=== PATIENT | female | born 1960 | race Caucasian/White ===

== ENCOUNTER 2018-04-11 10:25 | Emergency (ER) | payer BC ==
[2018-04-11] MEDS ORDERED: IBUPROFEN 400 MG TAB ONE (10:52)
--- NOTE | 2018-04-11 11:29 | EDPHYS ---
Physician Documentation [facility] Name: Luz Stacy Age: 57 yrs Sex: Female : 1960 Arrival Date: 04/11/2018 Time: 10:28 Bed 13 Private MD: MELIDA GARIBAY ED Physician Bhupinder Ortez HPI: 04/11 10:42 This 57 yrs old Female presents to ER via Ambulatory with complaints of Fall cp Injury - ANKLE. 10:42 The patient presents with an injury, pain, that is acute. The complaints affect the cp right ankle. 10:42 Context: resulted from twisting of the extremity, walking down hill, the patient can cp fully bear weight, the patient is able to ambulate, with moderate difficulty. Onset: The symptoms/episode began/occurred today. Associated signs and symptoms: Pertinent positives: swelling, Pertinent negatives calf tenderness, numbness, tingling, weakness. Treatment prior to arrival includes: no previous treatment. Severity of symptoms: in the emergency department the symptoms are unchanged. Historical: - Allergies: 10:37 No Known Allergies; lk1 - Home Meds: 10:35 Hart Oral [Active]; omeprazole Oral [Active]; Methocarbamol Oral [Active]; rb1 - PMHx: 10:35 Back pain; digestive issues; hormonal issues; rb1 - PSHx: 10:37 Cholecystectomy; ; back surgery; lk1 - Immunization history:: Adult Immunizations up to date. - Social history:: Smoking status: Patient uses tobacco products, smokes one-half pack cigarettes per day. - Ebola Screening: : No symptoms or risks identified at this time. ROS: 10:45 Constitutional: Negative for body aches, chills, fever, poor PO intake. cp 10:45 Eyes: Negative for injury, pain, redness, and discharge. cp 10:45 Cardiovascular: Negative for chest pain, edema, palpitations. 10:45 Respiratory: Negative for cough, shortness of breath, wheezing. 10:45 Abdomen/GI: Negative for abdominal pain, nausea, vomiting, and diarrhea. 10:45 MS/extremity: Positive for decreased range of motion, pain, swelling, tenderness, of the lateral aspect of right foot and right ankle. 10:45 Neuro: Negative for altered mental status, headache, weakness. 10:45 All other systems are negative. Exam: 10:50 Constitutional: The patient appears in no acute distress, alert, awake, non-toxic, well cp developed, well nourished. 10:50 Head/Face: Normocephalic, atraumatic. cp 10:50 Eyes: Periorbital structures: appear normal, Conjunctiva: normal, no exudate, no injection, Lids and lashes: appear normal, bilaterally. 10:50 ENT: External ear(s): are unremarkable, Nose: is normal, Mouth: is normal, Posterior pharynx: is normal, airway is patent. 10:50 Neck: ROM/movement: is normal, is supple, without pain, no range of motions limitations, no nuchal rigidity. 10:50 Chest/axilla: Inspection: normal. 10:50 Cardiovascular: Rate: normal. 10:50 Respiratory: the patient does not display signs of respiratory distress, Respirations: normal. 10:50 Abdomen/GI: Exam negative for discomfort, distension, guarding, Inspection: abdomen appears normal. 10:50 Back: pain, is absent, ROM is normal. 10:50 Musculoskeletal/extremity: Extremities: grossly normal except: noted in the lateral aspect right ankle and right foot: pain, swelling, tenderness, There is no evidence of decreased ROM, Pulses: noted to be 2+ in the right dorsalis pedis artery, Sensation intact. 10:50 Skin: cellulitis, is not appreciated, no rash present. Vital Signs: 10:38 BP 128 / 78; Pulse 78; Resp 15; Temp 97.5(TE); Pulse Ox 100% on R/A; Weight 74.84 kg lk1 (R); Height 5 ft. 1 in. (154.94 cm) (R); Pain 7/10; 11:40 BP 137 / 79; Pulse 74; Resp 16; Pulse Ox 99% on R/A; rb1 10:38 Body Mass Index 31.18 (74.84 kg, 154.94 cm) lk1 MDM: 10:35 Patient medically screened. cp 10:45 Differential diagnosis: dislocation, closed fracture, sprain, tendon rupture. cp 11:26 Data reviewed: vital signs, nurses notes, radiologic studies, plain films. Test cp interpretation: by ED physician or midlevel provider: plain radiologic studies. 11:26 Counseling: I had a detailed discussion with the patient and/or guardian regarding: the cp historical points, exam findings, and any diagnostic results supporting the discharge/admit diagnosis, radiology results, the need for outpatient follow up, a family practitioner, to return to the emergency department if symptoms worsen or persist or if there are any questions or concerns that arise at home. 04/11 10:39 Order name: Ankle Right 3 View XRAY cp 04/11 10:39 Order name: Foot Right 3 View XRAY cp 04/11 11:18 Order name: Galen wrap-joint; Complete Time: 12:12 cp 04/11 11:18 Order name: Crutches; Complete Time: 12:12 cp 04/11 11:18 Order name: Ankle Splint: Aircast; Complete Time: 12:12 cp Administered Medications: 10:56 Drug: Ibuprofen 800 mg Route: PO; rb1 11:30 Follow up: Response: No adverse reaction; Pain is decreased rb1 Disposition: 18:31 Co-signature as Attending Physician, Bhupinder Ortez MD. Disposition: 04/11/18 11:28 Discharged to Home. Impression: Sprain of ankle - Right, Other sprain of right foot. - Condition is Stable. - Discharge Instructions: Elastic Bandage and RICE, Ankle Sprain, Foot Sprain. - Prescriptions for Naprosyn 500 mg Oral Tablet - take 1 tablet by ORAL route 2 times per day take with food; 20 tablet. - Medication Reconciliation Form, Thank You Letter, Antibiotic Education, Prescription Opioid Use form. - Follow up: Private Physician; When: 1 week; Reason: pain and swelling continues. - Problem is new. - Symptoms have improved. Signatures: Dispatcher [employer] EDMS Donato Day PA PA cp Preeti Harvey RN RN rb1 Carolann Maki RN RN lk1 Bhupinder Ortez MD MD Eamon Waite jp3 Corrections: (The following items were deleted from the chart) 10:48 10:37 PMHx: None; lk1 rb1 11:29 11:28 04/11/2018 11:28 Discharged to Home. Impression: Sprain of ankle - Right; Pain in cp right foot. Condition is Stable. Forms are Medication Reconciliation Form, Thank You Letter, Antibiotic Education, Prescription Opioid Use. Follow up: Private Physician; When: 1 week; Reason: pain and swelling continues. Problem is new. Symptoms have improved. cp 11:43 11:29 04/11/2018 11:28 Discharged to Home. Impression: Sprain of ankle - Right; Other jp3 sprain of right foot. Condition is Stable. Discharge Instructions: Elastic Bandage and RICE, Ankle Sprain, Foot Sprain. Prescriptions for Naprosyn 500 mg Oral Tablet - take 1 tablet by ORAL route 2 times per day take with food; 20 tablet. and Forms are Medication Reconciliation Form, Thank You Letter, Antibiotic Education, Prescription Opioid Use. Follow up: Private Physician; When: 1 week; Reason: pain and swelling continues. Problem is new. Symptoms have improved. cp
--- NOTE | 2018-04-11 11:29 | ER ---
Nurse's Notes [facility] Name: Luz Stacy Age: 57 yrs Sex: Female : 1960 Arrival Date: 04/11/2018 Time: 10:28 Bed 13 Private MD: MELIDA GARIBAY Diagnosis: Sprain of ankle-Right;Other sprain of right foot Presentation: 04/11 10:36 Presenting complaint: Patient states: I slipped walking down a hill and twisted my lk1 right ankle. Transition of care: patient was not received from another setting of care. Onset of symptoms was April 11, 2018 at 09:30. Risk Assessment: Do you want to hurt yourself or someone else? Patient reports no desire to harm self or others. Initial Sepsis Screen: Does the patient meet any 2 criteria? No. Patient's initial sepsis screen is negative. Does the patient have a suspected source of infection? No. Patient's initial sepsis screen is negative. Care prior to arrival: None. 10:36 Method Of Arrival: Ambulatory lk1 10:36 Acuity: LON 4 lk1 Historical: - Allergies: 10:37 No Known Allergies; lk1 - Home Meds: 10:35 Perry Oral [Active]; omeprazole Oral [Active]; Methocarbamol Oral [Active]; rb1 - PMHx: 10:35 Back pain; digestive issues; hormonal issues; rb1 - PSHx: 10:37 Cholecystectomy; ; back surgery; lk1 - Immunization history:: Adult Immunizations up to date. - Social history:: Smoking status: Patient uses tobacco products, smokes one-half pack cigarettes per day. - Ebola Screening: : No symptoms or risks identified at this time. Screenin:35 Abuse screen: Denies threats or abuse. Nutritional screening: No deficits noted. rb1 Tuberculosis screening: No symptoms or risk factors identified. Fall Risk None identified. Assessment: 10:35 General: Appears uncomfortable, Behavior is calm, cooperative. Pain: Complains of pain rb1 in right ankle Pain currently is 8 out of 10 on a pain scale. Pain began 2-3 days ago. Neuro: Level of Consciousness is awake, alert, obeys commands, Oriented to person, place, time, situation. Cardiovascular: Capillary refill < 3 seconds is brisk in bilateral toes. Respiratory: Airway is patent Respiratory effort is even, unlabored, Respiratory pattern is regular, symmetrical. GI: No signs and/or symptoms were reported involving the gastrointestinal system. : No signs and/or symptoms were reported regarding the genitourinary system. Derm: Bruising that is on lateral aspect of right foot purple. Musculoskeletal: Range of motion: intact in all extremities. 10:58 Reassessment: Patient appears in no apparent distress at this time. No changes from rb1 previously documented assessment. at bedside. 11:40 Reassessment: Patient appears in no apparent distress at this time. Patient and/or rb1 family updated on plan of care and expected duration. Pain level reassessed. Patient is alert, oriented x 3, equal unlabored respirations, skin warm/dry/pink. Vital Signs: 10:38 BP 128 / 78; Pulse 78; Resp 15; Temp 97.5(TE); Pulse Ox 100% on R/A; Weight 74.84 kg lk1 (R); Height 5 ft. 1 in. (154.94 cm) (R); Pain 7/10; 11:40 BP 137 / 79; Pulse 74; Resp 16; Pulse Ox 99% on R/A; rb1 10:38 Body Mass Index 31.18 (74.84 kg, 154.94 cm) lk1 ED Course: 10:28 Patient arrived in ED. sb2 10:29 MELIDA GARIBAY is Private Physician. sb2 10:34 Donato Day PA is PHCP. cp 10:35 Bhupinder Ortez MD is Attending Physician. cp 10:35 Patient has correct armband on for positive identification. Bed in low position. Call rb1 light in reach. Side rails up X 1. Pulse ox on. NIBP on. 10:37 Triage completed. lk1 10:38 Preeti Harvey, LENNIE is Primary Nurse. rb1 10:38 Arm band placed on right wrist. lk1 10:55 X-ray completed. Portable x-ray completed in exam room. Patient tolerated procedure la2 well. 11:43 No provider procedures requiring assistance completed. Patient did not have IV access rb1 during this emergency room visit. Administered Medications: 10:56 Drug: Ibuprofen 800 mg Route: PO; rb1 11:30 Follow up: Response: No adverse reaction; Pain is decreased rb1 Outcome: 11:28 Discharge ordered by . cp 11:43 Patient left the ED. jp3 11:43 Discharged to home via wheelchair, with crutches, with family. rb1 11:43 Condition: stable 11:43 Discharge instructions given to patient, Instructed on discharge instructions, follow up and referral plans. medication usage, Demonstrated understanding of instructions, follow-up care, medications, Prescriptions given X 1. Signatures: Dispatcher [employer] EDMS Donato Day PA PA cp Barber, Rebecca RN RN rb1 Carolann Maki RN RN lk1 Ellen Paulino la2 Felicia Calabrese2 Eamon Waite jp3 Corrections: (The following items were deleted from the chart) 10:48 10:37 PMHx: None; lk1 rb1 12:00 11:58 In radiology for Ankle Right 3 View+RAD.[email or web address].[email or web address]. EDMS la2 12:00 11:58 In radiology for Foot Right 3 View+RAD.[email or web address].[email or web address]. EDMS la2
--- NOTE | 2018-04-12 09:33 | RAD REPORT ---
EXAM DESCRIPTION: RAD - Ankle Right 3 View - 04/11/2018 11:58 am CLINICAL HISTORY: PAIN Twisting injury to right foot and ankle. COMPARISON: None FINDINGS: Right ankle and right foot, multiple projections are submitted. Soft tissue swelling is seen about the ankle. No acute fracture or dislocation is identified. Promine nt calcaneal spurs.
== END 2018-04-11 11:43 | disposition home or self-care (01) ==
LOC: ER 10:25
DX: S93.401A Sprain of unspecified ligament of right ankle, initial encounter (principal); S93.691A Other sprain of right foot, initial encounter; Y93.01 Activity, walking, marching and hiking; Y93.9 Activity, unspecified; Y92.9 Unspecified place or not applicable; F17.210 Nicotine dependence, cigarettes, uncomplicated
CPT/HCPCS: 99283

== ENCOUNTER 2018-09-18 13:51 | Emergency (ER) | payer BC ==
[2018-09-18] MEDS ORDERED: FAMOTIDINE 20 MG/2 ML VIAL IV ONE (14:26)
[2018-09-18] MEDS ORDERED: METRONIDAZOLE 500mg IVPB 500 MG/100 ML BAG IV ONE (14:26)
[2018-09-18] MEDS ORDERED: NA CHLORIDE 0.9% 1,000 ML ONE (14:26)
[2018-09-18] MEDS ORDERED: ONDANSETRON 4 MG/2 ML VIAL ONE (14:26)
[2018-09-18] MEDS ORDERED: MORPHINE 4 MG/ML SYR ONE (14:26)
[2018-09-18] MEDS ORDERED: CIPROFLOXACIN 400mg IV 400 MG/200 ML BAG IV ONE (14:26)
[2018-09-18 14:27] LABS: Absolute Lymphocytes (CBC) 1.8 K/uL (0.7-4.9); Absolute Monocytes 0.4 K/uL (0.1-1.3); Absolute Neutrophil 2.4 K/uL (1.8-8.0); Basophils % 0.8 % (0-1.3); Eosinophils % 1.1 % (0-4.4); Hematocrit 37.5 % (36.0-45.0); Lymphocytes % 38.5 % (15.3-44.8); MCH 32.2 pg (27.0-35.0); MCV 92.7 fL (80-100); MPV 8.1 fL (7.6-11.3); Monocytes % 8.1 % (3.3-12.3); RBC Red Blood Cell Count 4.04 M/uL (3.86-4.86)
[2018-09-18 14:28] LABS: Protime INR 1.09
[2018-09-18 14:47] LABS: ALT/SGPT 22 U/L (12-78); AST/SGOT 16 U/L (15-37); Albumin 3.7 g/dL (3.4-5.0); Alkaline Phosphatase 58 U/L (45-117); BUN Blood Urea Nitrogen 16 mg/dL (7-18); Bicarbonate 27 mmol/L (21-32); Bilirubin Direct 0.2 mg/dL (0-0.2); Bilirubin Total 0.5 mg/dL (0.2-1.0); Glucose Level 111 mg/dL (74-106); Lipase 116 U/L (73-393); Magnesium 2.1 mg/dL (1.8-2.4); NT PRO-BNP 57 pg/mL (<125); Potassium 3.9 mmol/L (3.5-5.1); Protein, Total 7.2 g/dL (6.4-8.2); Sodium Level 143 mmol/L (136-145); Troponin (Emerg Dept Use Only) < 0.02 ng/mL (0.0-0.045)
[2018-09-18 16:35] LABS: Urine Blood TRACE (NEG); Urine Glucose NEGATIVE (NEG); Urine Protein NEGATIVE (NEG); Urine Specific Gravity 1.015 (1.005-1.030); Urine pH 6.5 (5.0-7.0)
--- NOTE | 2018-09-18 16:39 | RAD REPORT ---
EXAM DESCRIPTION: CT - Abdomen Pelvis W Contrast - 09/18/2018 4:31 pm CLINICAL HISTORY: Abdominal pain. Diarrhea COMPARISON: None. TECHNIQUE: Computed axial tomography of the abdomen and pelvis was obtained. 100 cc Isovue-300 is ad ministered intravenously. Oral contrast was given. All CT scans are performed using dose optimization technique as appropriate and may include automated exposure control or mA/KV adjustment according to patient size. FINDINGS: The liver, spleen, pancreas, adrenals and kidneys appear unremarkable. The appendix is normal caliber. There is no evidence of diverticulitis A ventral hernia contains fat. The neck measures 18 millimeters. Tiny umbilical hernia contains fat IMPRESSION: Small ventral and umbilical hernias. Diverticulosis without diverticulitis
--- NOTE | 2018-09-18 16:40 | RAD REPORT ---
EXAM DESCRIPTION: Latricia Single View09/18/2018 2:38 pm CLINICAL HISTORY: abd pain COMPARISON: 2010 FINDINGS: The lungs appear clear of acute infiltrate. The heart is normal size IMPRESSION: No acute abnormalities displayed
--- NOTE | 2018-09-18 16:43 | EDPHYS ---
Physician Documentation [facility] Name: Luz Stacy Age: 57 yrs Sex: Female : 1960 Arrival Date: 09/18/2018 Time: 13:53 Bed 23 Private MD: MELIDA GARIBAY ED Physician Donato Ivory HPI: 09/18 14:06 This 57 yrs old Female presents to ER via Ambulatory with complaints of milagros Abdominal Pain. 14:06 The patient presents with abdominal pain. Onset: The symptoms/episode began/occurred 3 milagros day(s) ago. The symptoms do not radiate. Associated signs and symptoms: none. The symptoms are described as crampy. Modifying factors: The symptoms are alleviated by remaining still, the symptoms are aggravated by pressure. Severity of pain: At its worst the pain was moderate in the emergency department the pain is unchanged. The patient has experienced similar episodes in the past, several times. Historical: - Allergies: 14:00 No Known Allergies; sv - Home Meds: 14:00 Robaxin Oral [Active]; Medford Oral [Active]; sv - PMHx: 14:00 Back pain; digestive issues; Hormonal issues; Diverticulitis; sv - PSHx: 14:00 Cholecystectomy; ; back surgery; Tubal ligation; left knee; sv - Immunization history:: Flu vaccine is up to date. - Social history:: Smoking status: Patient uses tobacco products, vapes, Patient/guardian denies using alcohol. - Ebola Screening: : No symptoms or risks identified at this time. - Family history:: not pertinent. ROS: 14:06 Constitutional: Negative for fever, chills, and weight loss, Eyes: Negative for injury, milagros pain, redness, and discharge, ENT: Negative for injury, pain, and discharge, Neck: Negative for injury, pain, and swelling, Cardiovascular: Negative for chest pain, palpitations, and edema, Respiratory: Negative for shortness of breath, cough, wheezing, and pleuritic chest pain, Back: Negative for injury and pain, : Negative for injury, bleeding, discharge, and swelling, MS/Extremity: Negative for injury and deformity, Skin: Negative for injury, rash, and discoloration, Neuro: Negative for headache, weakness, numbness, tingling, and seizure, Psych: Negative for depression, anxiety, suicide ideation, homicidal ideation, and hallucinations, Allergy/Immunology: Negative for hives, rash, and allergies, Endocrine: Negative for neck swelling, polydipsia, polyuria, polyphagia, and marked weight changes, Hematologic/Lymphatic: Negative for swollen nodes, abnormal bleeding, and unusual bruising. 14:06 Abdomen/GI: Positive for abdominal pain, of the right upper quadrant and left upper quadrant. Exam: 14:06 Constitutional: This is a well developed, well nourished patient who is awake, alert, milagros and in no acute distress. Head/Face: Normocephalic, atraumatic. Eyes: Pupils equal round and reactive to light, extra-ocular motions intact. Lids and lashes normal. Conjunctiva and sclera are non-icteric and not injected. Cornea within normal limits. Periorbital areas with no swelling, redness, or edema. ENT: Nares patent. No nasal discharge, no septal abnormalities noted. Tympanic membranes are normal and external auditory canals are clear. Oropharynx with no redness, swelling, or masses, exudates, or evidence of obstruction, uvula midline. Mucous membranes moist. Neck: Trachea midline, no thyromegaly or masses palpated, and no cervical lymphadenopathy. Supple, full range of motion without nuchal rigidity, or vertebral point tenderness. No Meningismus. Chest/axilla: Normal chest wall appearance and motion. Nontender with no deformity. No lesions are appreciated. Cardiovascular: Regular rate and rhythm with a normal S1 and S2. No gallops, murmurs, or rubs. Normal PMI, no JVD. No pulse deficits. Respiratory: Lungs have equal breath sounds bilaterally, clear to auscultation and percussion. No rales, rhonchi or wheezes noted. No increased work of breathing, no retractions or nasal flaring. Back: No spinal tenderness. No costovertebral tenderness. Full range of motion. Female : Normal external genitalia. Skin: Warm, dry with normal turgor. Normal color with no rashes, no lesions, and no evidence of cellulitis. MS/ Extremity: Pulses equal, no cyanosis. Neurovascular intact. Full, normal range of motion. Neuro: Awake and alert, GCS 15, oriented to person, place, time, and situation. Cranial nerves II-XII grossly intact. Motor strength 5/5 in all extremities. Sensory grossly intact. Cerebellar exam normal. Normal gait. Psych: Awake, alert, with orientation to person, place and time. Behavior, mood, and affect are within normal limits. 14:06 Abdomen/GI: Inspection: abdomen appears normal, Bowel sounds: normal, Palpation: moderate abdominal tenderness, in the epigastric area, right upper quadrant and left upper quadrant, Liver: no appreciated palpable abnormalities, Hernia: not appreciated. Vital Signs: 14:00 BP 137 / 88; Pulse 81; Resp 22; Temp 98.3; Pulse Ox 96% ; Weight 76.66 kg; Height 5 ft. sv 1 in. (154.94 cm); Pain 10/10; 16:34 BP 122 / 76; Pulse 76; Resp 16; Temp 98.4(O); Pulse Ox 99% on R/A; Pain 3/10; ls4 14:00 Body Mass Index 31.93 (76.66 kg, 154.94 cm) sv MDM: 13:58 Patient medically screened. [facility] 14:08 Data reviewed: vital signs, nurses notes, lab test result(s), EKG, radiologic studies, [facility] CT scan, plain films. 12 14:06 Order name: Basic Metabolic Panel [facility] 09/18 14:06 Order name: CBC with Diff [facility] 09/18 14:06 Order name: LFT's; Complete Time: 15:06 [facility] 09/18 14:06 Order name: Magnesium; Complete Time: 15:06 [facility] 09/18 14:06 Order name: NT PRO-BNP; Complete Time: 15:06 [facility] 09/18 14:06 Order name: PT-INR; Complete Time: 15:06 [facility] 09/18 14:06 Order name: Troponin (emerg Dept Use Only); Complete Time: 15:06 [facility] 09/18 14:06 Order name: XRAY Chest (1 view) [facility] 09/18 14:06 Order name: Lipase; Complete Time: 15:06 [facility] 09/18 14:06 Order name: Urine Culture [facility] 09/18 14:06 Order name: CT Abd/Pelvis - W/Contrast; Complete Time: 16:40 [facility] 09/18 14:07 Order name: Basic Metabolic Panel; Complete Time: 15:06 [facility] 09/18 14:07 Order name: CBC with Automated Diff; Complete Time: 15:06 [facility] 09/18 14:55 Order name: Urine Dipstick--Ancillary (enter results); Complete Time: 16:38 09/18 14:06 Order name: EKG; Complete Time: 14:07 [facility] 09/18 14:06 Order name: Cardiac monitoring; Complete Time: 14:14 [facility] 09/18 14:06 Order name: EKG - Nurse/Tech; Complete Time: 14:21 [facility] 09/18 14:06 Order name: IV Saline Lock; Complete Time: 14:14 [facility] 09/18 14:06 Order name: Labs collected and sent; Complete Time: 14:14 [facility] 09/18 14:06 Order name: O2 Per Protocol; Complete Time: 14:14 [facility] 09/18 14:06 Order name: O2 Sat Monitoring; Complete Time: 14:14 [facility] 09/18 14:06 Order name: Urine Dipstick-Ancillary (obtain specimen); Complete Time: 14:14 [facility] Administered Medications: 14:29 Drug: Zofran 4 mg Route: IVP; Site: right antecubital; ls4 14:45 Follow up: Response: No adverse reaction; Blood sugar is lowered ls4 14:29 Drug: Pepcid 20 mg Route: IVP; Site: right antecubital; ls4 14:52 Follow up: Response: No adverse reaction; Blood sugar is unchanged ls4 14:29 Drug: Flagyl 500 mg Volume: 100 ml; Route: IVPB; Rate: 200 ml/hr; Infused Over: 30 ls4 mins; Site: right antecubital; 15:02 Follow up: Response: No adverse reaction; Blood sugar is elevated; IV Status: Completed ls4 infusion; IV Intake: 100ml 14:30 Drug: NS 0.9% 1000 ml Route: IV; Rate: 1 bolus; Site: right antecubital; ls4 15:40 Follow up: IV Status: Completed infusion; IV Intake: 1000ml ls4 14:30 Drug: morphine 4 mg Route: IVP; Site: right antecubital; ls4 15:00 Follow up: Response: No adverse reaction; Marked relief of symptoms ls4 14:49 Drug: Cipro 400 mg Volume: 200 ml; Route: IVPB; Infused Over: 60 mins; Site: right ls4 antecubital; 15:49 Follow up: Response: No adverse reaction; IV Status: Completed infusion; IV Intake: ls4 200ml Disposition: 09/18/18 16:41 Discharged to Home. Impression: Ventral hernia, Ventral hernia without obstruction or gangrene, Umbilical hernia without obstruction or gangrene, Umbilical hernia, Cystitis. - Condition is Stable. - Discharge Instructions: Hernia, Adult, Urinary Tract Infection, Adult, Hernia, Adult, [id number], Ventral Hernia. - Prescriptions for Bentyl 20 mg Oral Tablet - take 1 tablet by ORAL route every 6 hours As needed; 20 tablet. Pepcid 20 mg Oral Tablet - take 1 tablet by ORAL route every 12 hours for 10 days; 20 tablet. Cipro 500 mg Oral Tablet - take 1 tablet by ORAL route every 12 hours for 7 days; 14 tablet. - Medication Reconciliation Form, Thank You Letter, Antibiotic Education, Prescription Opioid Use form. - Follow up: MELIDA GARIBAY; When: 2 - 3 days; Reason: Recheck today's complaints, Continuance of care, Re-evaluation by your physician. Follow up: Perez Gee MD; When: 2 - 3 days; Reason: Recheck today's complaints, Re-evaluation by your physician. - Problem is new. - Symptoms have improved. Signatures: Dispatcher [employer] EDNeisha Escobar RN RN Donato Anderson MD MD cha Stewart, Lisa, RN RN ls4 Corrections: (The following items were deleted from the chart) 17:07 16:41 09/18/2018 16:41 Discharged to Home. Impression: Ventral hernia; Ventral hernia ls4 without obstruction or gangrene; Umbilical hernia without obstruction or gangrene; Umbilical hernia; Cystitis. Condition is Stable. Forms are Medication Reconciliation Form, Thank You Letter, Antibiotic Education, Prescription Opioid Use. Follow up: MELIDA GARIBAY; When: 2 - 3 days; Reason: Recheck today's complaints, Continuance of care, Re-evaluation by your physician. Follow up: Perez Gee; When: 2 - 3 days; Reason: Recheck today's complaints, Re-evaluation by your physician. Problem is new. Symptoms have improved. milagros
--- NOTE | 2018-09-18 16:43 | ER ---
Nurse's Notes [facility] Name: Luz Stacy Age: 57 yrs Sex: Female : 1960 Arrival Date: 09/18/2018 Time: 13:53 Bed 23 Private MD: MELIDA GARIBAY Diagnosis: Ventral hernia;Ventral hernia without obstruction or gangrene;Umbilical hernia without obstruction or gangrene;Umbilical hernia;Cystitis Presentation: 09/18 13:53 Presenting complaint: Patient states: abd pain started today, reports diarrhea but she sv has it all the time. Denies n/v. States she has a "knot" on her abd. Transition of care: patient was not received from another setting of care. Onset of symptoms was September 18, 2018. Care prior to arrival: None. 13:53 Method Of Arrival: Ambulatory sv 13:53 Acuity: LON 3 sv 14:01 Risk Assessment: Do you want to hurt yourself or someone else? Patient reports no ls4 desire to harm self or others. Initial Sepsis Screen: Does the patient meet any 2 criteria? No. Patient's initial sepsis screen is negative. Does the patient have a suspected source of infection? No. Patient's initial sepsis screen is negative. Triage Assessment: 13:53 General: Appears uncomfortable, Behavior is cooperative. Pain: Complains of pain in sv abdomen Pain currently is 10 out of 10 on a pain scale. Neuro: Level of Consciousness is awake, alert, obeys commands, Oriented to person, place, time, situation, Moves all extremities. Full function Gait is steady, Speech is normal. Respiratory: Respiratory effort is even, unlabored, Respiratory pattern is regular, symmetrical. GI: Reports lower abdominal pain, upper abdominal pain, diarrhea, Patient currently denies nausea, vomiting. Historical: - Allergies: 14:00 No Known Allergies; sv - Home Meds: 14:00 Robaxin Oral [Active]; [place] Oral [Active]; sv - PMHx: 14:00 Back pain; digestive issues; Hormonal issues; Diverticulitis; sv - PSHx: 14:00 Cholecystectomy; ; back surgery; Tubal ligation; left knee; sv - Immunization history:: Flu vaccine is up to date. - Social history:: Smoking status: Patient uses tobacco products, vapes, Patient/guardian denies using alcohol. - Ebola Screening: : No symptoms or risks identified at this time. - Family history:: not pertinent. Screenin:00 Abuse screen: Denies threats or abuse. Denies injuries from another. Nutritional ls4 screening: No deficits noted. Tuberculosis screening: No symptoms or risk factors identified. Fall Risk None identified. Assessment: 14:02 General: Appears uncomfortable, Behavior is calm, cooperative. Pain: Complains of pain ls4 in epigastric area and left upper quadrant and right upper quadrant and abdomen Pain currently is 9 out of 10 on a pain scale. Neuro: No deficits noted. Cardiovascular: No deficits noted. Respiratory: Airway is patent Respiratory effort is even, unlabored, Respiratory pattern is regular. GI: GI: Bowel sounds present X 4 quads. Musculoskeletal: No deficits noted. 15:02 Reassessment: Patient appears in no apparent distress at this time. Patient and/or ls4 family updated on plan of care and expected duration. Pain level reassessed. Patient is alert, oriented x 3, equal unlabored respirations, skin warm/dry/pink. 16:02 Reassessment: Patient appears in no apparent distress at this time. Patient and/or ls4 family updated on plan of care and expected duration. Pain level reassessed. Patient is alert, oriented x 3, equal unlabored respirations, skin warm/dry/pink. Vital Signs: 14:00 BP 137 / 88; Pulse 81; Resp 22; Temp 98.3; Pulse Ox 96% ; Weight 76.66 kg; Height 5 ft. sv 1 in. (154.94 cm); Pain 10/10; 16:34 BP 122 / 76; Pulse 76; Resp 16; Temp 98.4(O); Pulse Ox 99% on R/A; Pain 3/10; ls4 14:00 Body Mass Index 31.93 (76.66 kg, 154.94 cm) sv ED Course: 13:53 Patient arrived in ED. mr 13:53 MELIDA GARIBAY is Private Physician. mr 13:57 Radha Costa, LENNIE is Primary Nurse. ls4 13:58 Donato Ivory MD is Attending Physician. [facility] 13:59 Triage completed. sv 14:00 Arm band placed on right wrist. Patient placed in an exam room, on a stretcher. sv 14:00 Bed in low position. Call light in reach. Side rails up X2. ls4 14:00 No provider procedures requiring assistance completed. ls4 14:14 Urine collected: clean catch specimen, cloudy. Inserted saline lock: 20 gauge in right mt antecubital area, using aseptic technique. Blood collected. 14:30 Basic Metabolic Panel Sent. ls4 14:31 CBC with Diff Sent. ls4 14:39 XRAY Chest (1 view) In Process Unspecified. EDMS 14:58 CT SCAN, PT FINISHED DRINKING CONTRAST. ls4 16:31 CT Abd/Pelvis - W/Contrast In Process Unspecified. EDMS 16:40 MELIDA GARIBAY is Referral Physician. milagros 16:41 Perez Gee MD is Referral Physician. [facility] 17:02 IV discontinued, intact, bleeding controlled, No redness/swelling at site. Pressure ls4 dressing applied. Administered Medications: 14:29 Drug: Zofran 4 mg Route: IVP; Site: right antecubital; ls4 14:45 Follow up: Response: No adverse reaction; Blood sugar is lowered ls4 14:29 Drug: Pepcid 20 mg Route: IVP; Site: right antecubital; ls4 14:52 Follow up: Response: No adverse reaction; Blood sugar is unchanged ls4 14:29 Drug: Flagyl 500 mg Volume: 100 ml; Route: IVPB; Rate: 200 ml/hr; Infused Over: 30 ls4 mins; Site: right antecubital; 15:02 Follow up: Response: No adverse reaction; Blood sugar is elevated; IV Status: Completed ls4 infusion; IV Intake: 100ml 14:30 Drug: NS 0.9% 1000 ml Route: IV; Rate: 1 bolus; Site: right antecubital; ls4 15:40 Follow up: IV Status: Completed infusion; IV Intake: 1000ml ls4 14:30 Drug: morphine 4 mg Route: IVP; Site: right antecubital; ls4 15:00 Follow up: Response: No adverse reaction; Marked relief of symptoms ls4 14:49 Drug: Cipro 400 mg Volume: 200 ml; Route: IVPB; Infused Over: 60 mins; Site: right ls4 antecubital; 15:49 Follow up: Response: No adverse reaction; IV Status: Completed infusion; IV Intake: ls4 200ml Intake: 15:02 IV: 100ml; Total: 100ml. ls4 15:40 IV: 1000ml; Total: 1100ml. ls4 15:49 IV: 200ml; Total: 1300ml. ls4 Outcome: 16:41 Discharge ordered by . milagros 17:02 Discharged to home ambulatory, with family. ls4 17:02 Condition: stable 17:02 Discharge instructions given to patient, family, Instructed on discharge instructions, follow up and referral plans. medication usage, safety practices, Demonstrated understanding of instructions, follow-up care, medications, Prescriptions given X 3. 17:07 Patient left the ED. ls4 Signatures: Dispatcher [employer] EDNeisha Escobar, RN RN Donato Anderson MD MD cha Rivera, Mary mr Thompson, Radha Christian mt, RN RN ls4
--- NOTE | 2018-09-20 07:14 | EKG ---
Test Date: 2018-09-18 Test Time: 14:17:06 Senior Sales Representative: AICHA MEASUREMENT RESULTS: Intervals: Rate: 73 NM: 158 QRSD: 78 QT: 372 QTc: 409 [place]: P: 31 NM: 158 QRS: 51 T: 49 INTERPRETIVE STATEMENTS: Normal sinus rhythm Normal ECG Compared to ECG 10/07/2011 12:14:18 No significant changes Electronically Signed On 09-20-18 07:11:16 NURSE SPECIALIST by Italo Cooley
== END 2018-09-18 17:07 | disposition home or self-care (01) ==
LOC: ER 13:51
DX: K43.9 Ventral hernia without obstruction or gangrene (principal); K42.9 Umbilical hernia without obstruction or gangrene; N30.90 Cystitis, unspecified without hematuria; Z72.0 Tobacco use
CPT/HCPCS: 36415; 71045; 74177; 80048; 80076; 81003; 83690; 83735; 83880; 84484; 85025; 85610; 87086; 87088; 93005; 96365; 96368; 96375; 99284; J0744; J2405; J7030; Q9967

== ENCOUNTER 2018-09-27 07:24 | Day surgery (SDC) | payer BC ==
[2018-09-27] MEDS ORDERED: Ringers Lactate 1,000 ML IV ONE (08:10)
[2018-09-27] MEDS ORDERED: CEFAZOLIN 2GM (PREMIX IV) 2 GM/50 ML BAG ONE (08:11)
[2018-09-27] MEDS ORDERED: PROPOFOL 200 MG/20 ML VIAL IV ONE (08:52)
[2018-09-27] MEDS ORDERED: FENTANYL CITR 100 MCG/2 ML ONE (08:53)
[2018-09-27] MEDS ORDERED: MIDAZOLAM HCL 2 MG/2 ML INJ ONE ×2 (08:54→11:03)
[2018-09-27] MEDS ORDERED: LIDOCAINE 2% MPF 5 ML VIAL ONE (08:54)
[2018-09-27] MEDS ORDERED: ONDANSETRON 4 MG/2 ML VIAL ONE (08:56)
[2018-09-27] MEDS ORDERED: ROCURONIUM 50 MG/5 ML VIAL IV ONE (08:57)
[2018-09-27] MEDS: BUPIVACA 0.25%/EPI 0.0005% MDV 50 ML VIAL ONE ×2 (09:45→10:08)
--- NOTE | 2018-09-27 10:13 | P.OP ---
Preoperative diagnosis: Umbilical Hernia Postoperative diagnosis: Umbilical Hernia Primary procedure: Laparoscopic Ventral Hernia repair with Mesh Anesthesia: GETA + Local Estimated blood loss: <2cc Specimen: none Findings: ~2.5cm umbilical hernia Complications: None Implants: Bard Ventralite ST 11.4 cm round mesh with echo position system Transferred to: Recovery Room Condition: Good
[2018-09-27] MEDS ORDERED: GLYCOPYRROLATE 0.2 MG/ML SYR ONE (10:18)
[2018-09-27] MEDS ORDERED: NEOSTIGMINE 1 MG/ML -5 ML SYRINGE ONE (10:18)
[2018-09-27] MEDS: HYDROMORPHONE HCL 1 MG/ML INJ ONE ×4 (10:27→10:46)
[2018-09-27] MEDS ORDERED: HYDROCODONE/APAP 5/325 MG TAB ONE ×2 (11:37→12:40)
[2018-09-27] MEDS ORDERED: MEPERIDINE HCL 25 MG/0.5 ML ONE (11:44)
--- NOTE | 2018-09-27 21:26 | OP ---
Date of Procedure: 09/27/2018 Surgeon: Perez Gee MD, Preoperative Diagnosis: Umbilical hernia. Postoperative Diagnosis: Umbilical hernia. Procedure Performed: Laparoscopic ventral hernia repair with mesh. Anesthesia: General endotracheal plus local. Estimated Blood Loss: Less than 2 cc. Specimen: None. Findings: Approximately 2.5 cm umbilical hernia in the ventral position. Complications: None. Implants: Bard Ventralight ST 11.4 cm round mesh with Echo Positioning System. Disposition: Transferred to recovery room in good condition. Procedure In Detail: After informed consent was obtained, the patient was brought to the operating r oom, prepped and draped in the usual sterile fashion. After adequate anesthesia was achieved, an are a of the left mid abdomen was appropriately anesthetized and sharply incised. A 5-mm trocar was intr oduced into the abdomen without evidence of complication. Insufflation was obtained to 15 mmHg at th is time. There was no injury to vital structures upon entry into the abdomen. Additional trocar sit e was chosen in the right mid quadrant. This same was anesthetized, sharply incised, and a 5-mm troc ar was introduced into the abdomen without evidence of complication. The left-sided abdominal trocar was then up-sized to a 12 mm under direct visualization without evidence of complication. Attention was then turned to the umbilical hernia, which was found to be a ventral infraumbilical and umbilica l ventral abdominal wall hernia. This was approximately 2.5 cm in size. A 11.[address] mesh with Echo Positioning System was brought into the abdomen through the lateral trocar and posi tioned appropriately in the midportion of the abdomen and the infraumbilical position was then approp riately anesthetized with 0.25% Marcaine and a small incision was made and the Chandler-Grabiel suture passer was used to place the Chandler-Larios into the abdomen. The inflation tubing of the mesh was then grasped and pulled up and the mesh was placed in close apposition to the abdominal wall. The b alloon deployment system was then deployed and the mesh was positioned appropriately and secured circ umferentially with a single crown at this time using the absorbable fixation system. The balloon dev ice was then removed through the lateral trocar, found to be intact, and the remainder of the mesh wa s then secured to the anterior abdominal wall using the absorbable fixation system in a double-crown fashion with good apposition of the mesh to the anterior abdominal wall. The abdomen was slightly de sufflated and the left lateral trocar was then removed and the trocar site was closed with a Chandler-T homason suture passer with 0 Vicryl in interrupted fashion with good approximation of tissues. The a bdomen was then completely desufflated under direct visualization without evidence of complication. All trocars were then removed. Skin incisions were copiously irrigated and closed with a 4-0 Monocry l in a running fashion. Dermabond was placed over the top. The patient tolerated the procedure with out evidence of complication and transferred to PACU in good condition. All counts were correct at t he end of the case. RORY/KETTY Voice ID: [id number] Report ID: [id number]
== END 2018-09-27 13:45 | disposition home or self-care (01) ==
LOC: OR 07:24
PROVIDERS: ATTEND Surgery
PROC: 0WUF4JZ Supplement Abdominal Wall with Synthetic Substitute, Percutaneous Endoscopic Approach (ICD-10-PCS; principal; 2018-09-27 09:00)
DX: K42.9 Umbilical hernia without obstruction or gangrene (principal); Z86.19 Personal history of other infectious and parasitic diseases; Z87.891 Personal history of nicotine dependence
CPT/HCPCS: C1781; J0690; J1170; J2175; J2250; J2405; J2704; J2710; J3010

== ENCOUNTER 2018-10-22 20:23 | Emergency (ER) | payer BC ==
--- OUTSIDE RECORDS SUMMARY | 2018-10-22 20:25 | XMS REPORT ---
:1960 [facility] [address] [place] [address] Dr. Hill. [address] [place] [id number] Care Team Providers Name Role Phone Unavailable Unavailable Unavailable Problems This patient has no known problems. Allergies, Adverse Reactions, Alerts This patient has no known allergies or adverse reactions. Medications This patient has no known medications.
[2018-10-22 21:47] LABS: Absolute Lymphocytes (CBC) 2.1 K/uL (0.7-4.9); Absolute Monocytes 0.6 K/uL (0.1-1.3); Absolute Neutrophil 3.8 K/uL (1.8-8.0); Basophils % 0.8 % (0-1.3); Eosinophils % 3.2 % (0-4.4); Hematocrit 38.9 % (36.0-45.0); Lymphocytes % 30.6 % (15.3-44.8); MPV 8.1 fL (7.6-11.3); Monocytes % 9.5 % (3.3-12.3); RBC Red Blood Cell Count 4.17 M/uL (3.86-4.86)
[2018-10-22 21:55] LABS: Urine Bacteria <20 /HPF (<20); Urine Culture Reflex Order NOT NEEDED; Urine Mucus 1+ /HPF (NONE SEEN)
[2018-10-22 21:56] LABS: Urine Blood TRACE (NEG); Urine Glucose NEGATIVE (NEG); Urine Protein NEGATIVE (NEG); Urine pH 5.5 (5.0-7.0)
[2018-10-22 22:03] LABS: ALT/SGPT 23 U/L (12-78); AST/SGOT 17 U/L (15-37); Albumin 3.9 g/dL (3.4-5.0); Alkaline Phosphatase 58 U/L (45-117); BUN Blood Urea Nitrogen 21 mg/dL (7-18); Bicarbonate 27 mmol/L (21-32); Bilirubin Direct < 0.1 mg/dL (0-0.2); Bilirubin Total 0.3 mg/dL (0.2-1.0); Glucose Level 80 mg/dL (74-106); Lipase 133 U/L (73-393); Potassium 4.2 mmol/L (3.5-5.1); Protein, Total 7.5 g/dL (6.4-8.2); Sodium Level 142 mmol/L (136-145)
[2018-10-22] MEDS ORDERED: MORPHINE 4 MG/ML SYR ONE (22:11)
[2018-10-22] MEDS ORDERED: ONDANSETRON 4 MG/2 ML VIAL ONE (22:12)
[2018-10-23] MEDS ORDERED: ONDANSETRON 4 MG/2 ML VIAL ONE (00:01)
--- NOTE | 2018-10-23 00:26 | EDPHYS ---
Physician Documentation [facility] Name: Luz Stacy Age: 57 yrs Sex: Female : 1960 Arrival Date: 10/22/2018 Time: 20:26 Bed 8 Private MD: MELIDA GARIBAY ED Physician Donato Ivory HPI: 10/22 22:00 This 57 yrs old Female presents to ER via Ambulatory with complaints of pm1 Abdominal Pain. 22:00 The patient presents with abdominal pain in the left upper quadrant. pm1 22:00 Onset: The symptoms/episode began/occurred this morning. The symptoms do not radiate. pm1 Associated signs and symptoms: Pertinent positives: diarrhea, Pertinent negatives: nausea and vomiting, chest pain, dysuria, fever, shortness of breath. The symptoms are described as achy. Modifying factors: The symptoms are alleviated by nothing, the symptoms are aggravated by nothing. Severity of pain: in the emergency department the pain is actually worse. The patient has not experienced similar symptoms in the past. Historical: - Allergies: 20:48 No Known Allergies; bb - Home Meds: 20:48 Methocarbamol Oral [Active]; [employer] Oral [Active]; Omeprazole Oral [Active]; Bentyl Oral bb [Active]; - PMHx: 20:48 Back pain; digestive issues; Diverticulitis; Hormonal issues; bb - PSHx: 20:48 Cholecystectomy; ; back surgery; Tubal ligation; left knee; bb - Immunization history:: Adult Immunizations up to date, Flu vaccine is up to date. - Social history:: Smoking status: Patient/guardian denies using tobacco. - Ebola Screening: : No symptoms or risks identified at this time. ROS: 22:00 Constitutional: Negative for fever, chills, and weight loss, Eyes: Negative for injury, pm1 pain, redness, and discharge, ENT: Negative for injury, pain, and discharge, Neck: Negative for injury, pain, and swelling, Cardiovascular: Negative for chest pain, palpitations, and edema, Respiratory: Negative for shortness of breath, cough, wheezing, and pleuritic chest pain. 22:00 Back: Negative for injury and pain, : Negative for injury, bleeding, discharge, and swelling, MS/Extremity: Negative for injury and deformity, Skin: Negative for injury, rash, and discoloration, Neuro: Negative for headache, weakness, numbness, tingling, and seizure. 22:00 Abdomen/GI: Positive for abdominal pain, diarrhea, Negative for nausea and vomiting. Exam: 22:00 Constitutional: This is a well developed, well nourished patient who is awake, alert, pm1 and in no acute distress. Head/Face: Normocephalic, atraumatic. Eyes: Pupils equal round and reactive to light, extra-ocular motions intact. Lids and lashes normal. Conjunctiva and sclera are non-icteric and not injected. Cornea within normal limits. Periorbital areas with no swelling, redness, or edema. ENT: Nares patent. No nasal discharge, no septal abnormalities noted. Tympanic membranes are normal and external auditory canals are clear. Oropharynx with no redness, swelling, or masses, exudates, or evidence of obstruction, uvula midline. Mucous membranes moist. Neck: Trachea midline, no thyromegaly or masses palpated, and no cervical lymphadenopathy. Supple, full range of motion without nuchal rigidity, or vertebral point tenderness. No Meningismus. Chest/axilla: Normal chest wall appearance and motion. Nontender with no deformity. No lesions are appreciated. Cardiovascular: Regular rate and rhythm with a normal S1 and S2. No gallops, murmurs, or rubs. Normal PMI, no JVD. No pulse deficits. Respiratory: Lungs have equal breath sounds bilaterally, clear to auscultation and percussion. No rales, rhonchi or wheezes noted. No increased work of breathing, no retractions or nasal flaring. 22:00 Back: No spinal tenderness. No costovertebral tenderness. Full range of motion. Skin: Warm, dry with normal turgor. Normal color with no rashes, no lesions, and no evidence of cellulitis. MS/ Extremity: Pulses equal, no cyanosis. Neurovascular intact. Full, normal range of motion. 22:00 Abdomen/GI: Inspection: abdomen appears normal, Bowel sounds: normal, Palpation: soft, mild abdominal tenderness, in the left upper quadrant, mass, is not appreciated, rebound tenderness, is not appreciated. 22:00 Neuro: Orientation: is normal, Motor: is normal, moves all fours. Vital Signs: 20:48 BP 125 / 85; Pulse 83; Resp 18 S; Temp 98.4(O); Pulse Ox 83% on R/A; Weight 77.11 kg bb (R); Height 5 ft. 1 in. (154.94 cm) (R); Pain 10/10; 22:08 BP 103 / 75; Pulse 76; Resp 18; Pulse Ox 97% on R/A; Pain 9/10; ed1 23:00 BP 118 / 70; Pulse 71; Resp 16; Pulse Ox 100% on R/A; Pain 6/10; ed1 23:41 BP 120 / 76; Pulse 72; Resp 18; Pulse Ox 100% ; ms 20:48 Body Mass Index 32.12 (77.11 kg, 154.94 cm) bb MDM: 20:52 Patient medically screened. pm1 10/23 00:22 Data reviewed: vital signs. Data interpreted: Pulse oximetry: on room air is 100 %. pm1 Interpretation: normal. Counseling: I had a detailed discussion with the patient and/or guardian regarding: the historical points, exam findings, and any diagnostic results supporting the discharge/admit diagnosis, lab results, radiology results, the need for outpatient follow up, to return to the emergency department if symptoms worsen or persist or if there are any questions or concerns that arise at home. 10/22 21:01 Order name: Basic Metabolic Panel; Complete Time: 22:08 pm1 10/22 21:01 Order name: CBC with Diff; Complete Time: 22:08 pm1 10/22 21:01 Order name: Creatinine for Radiology; Complete Time: 22:08 pm1 10/22 21:01 Order name: Hepatic Function; Complete Time: 22:08 pm1 10/22 21:01 Order name: Lipase; Complete Time: 22:08 pm1 10/22 21:01 Order name: Urine Microscopic Only; Complete Time: 22:08 pm1 10/22 21:16 Order name: CT Abd/Pelvis - W/Contrast: IV contrast only pm1 10/22 21:44 Order name: Urine Dipstick--Ancillary (enter results); Complete Time: 22:08 ar5 10/22 21:57 Order name: Urine Culture [facility] 10/22 21:01 Order name: IV Saline Lock; Complete Time: 21:59 pm1 10/22 21:01 Order name: Labs collected and sent; Complete Time: 21:59 pm1 10/22 21:01 Order name: Urine Dipstick-Ancillary (obtain specimen); Complete Time: 21:35 pm1 Administered Medications: 10/22 22:09 Drug: morphine 4 mg Route: IVP; Site: right antecubital; lp1 23:00 Follow up: Response: Pain is decreased lp1 22:09 Drug: Zofran 4 mg Route: IVP; Site: right antecubital; lp1 10/23 00:40 Follow up: Response: No adverse reaction; Nausea is decreased ed1 10/22 23:53 Drug: Zofran 4 mg Route: IVP; Site: right antecubital; lp1 10/23 00:41 Follow up: Response: No adverse reaction; Nausea is decreased ed1 00:40 Drug: Cipro 500 mg Route: PO; ed1 01:16 Follow up: Response: No adverse reaction lp1 00:41 Drug: Flagyl 500 mg Volume: 100 ml; Route: IVPB; Rate: 200 ml/hr; Infused Over: 30 ed1 mins; Site: right antecubital; 01:16 Follow up: IV Status: Completed infusion lp1 00:41 Drug: morphine 4 mg Route: IVP; Site: right antecubital; ed1 01:16 Follow up: Response: Pain is decreased lp1 Disposition: 10/23/18 00:24 Discharged to Home. Impression: Diverticulitis of large intestine without perforation or abscess without bleeding. - Condition is Stable. - Discharge Instructions: Diverticulitis. - Prescriptions for Flagyl 500 mg Oral Tablet - take 1 tablet by ORAL route every 8 hours for 10 days; 30 tablet. Tylenol- Codeine #3 300-30 mg Oral Tablet - take 2 tablet by ORAL route every 6 hours As needed; 30 tablet. Cipro 500 mg Oral Tablet - take 1 tablet by ORAL route every 12 hours for 10 days; 20 tablet. - Medication Reconciliation Form, Thank You Letter, Antibiotic Education, Prescription Opioid Use form. - Follow up: Emergency Department; When: As needed; Reason: Worsening of condition. Follow up: Private Physician; When: 2 - 3 days; Reason: Recheck today's complaints, Continuance of care, Re-evaluation by your physician. - Problem is new. - Symptoms have improved. Addendum: 10/26/2018 06:52 Co-signature as Attending Physician, Donato Ivory MD I agree with the assessment and c de leon plan of care. Signatures: Dispatcher [employer] EDMS Donato Ivory MD MD cha Ballard, Brenda, RN RN Jewels Liz LVN DISTANCE EDUCATION FACULTY LIAISON ed1 Bharti Fletcher RN RN lp1 Claudio Mckeon, LIFT MECHANIC LIFT MECHANIC pm1 Corrections: (The following items were deleted from the chart) 10/23 01:18 00:24 10/23/2018 00:24 Discharged to Home. Impression: Diverticulitis of large lp1 intestine without perforation or abscess without bleeding. Condition is Stable. Forms are Medication Reconciliation Form, Thank You Letter, Antibiotic Education, Prescription Opioid Use. Follow up: Emergency Department; When: As needed; Reason: Worsening of condition. Follow up: Private Physician; When: 2 - 3 days; Reason: Recheck today's complaints, Continuance of care, Re-evaluation by your physician. Problem is new. Symptoms have improved. pm1
--- NOTE | 2018-10-23 00:26 | ER ---
Nurse's Notes [facility] Name: Luz Stacy Age: 57 yrs Sex: Female : 1960 Arrival Date: 10/22/2018 Time: 20:26 Bed 8 Private MD: MELIDA GARIBAY Diagnosis: Diverticulitis of large intestine without perforation or abscess without bleeding Presentation: 10/22 20:45 Presenting complaint: Patient states: she is having upper abdominal pain all day pain bb radiates across abdomen and into back denies vomiting but has had nausea and diarrhea pt had hernia repair on 09/27 pt rode bicycle yesterday morning. Transition of care: patient was not received from another setting of care. Onset of symptoms was October 22, 2018. Risk Assessment: Do you want to hurt yourself or someone else? Patient reports no desire to harm self or others. Initial Sepsis Screen: Does the patient meet any 2 criteria? No. Patient's initial sepsis screen is negative. Does the patient have a suspected source of infection? No. Patient's initial sepsis screen is negative. Care prior to arrival: OTC medications and Bentyl with no relief. 20:45 Method Of Arrival: Ambulatory bb 20:45 Acuity: LON 3 bb Historical: - Allergies: 20:48 No Known Allergies; bb - Home Meds: 20:48 Methocarbamol Oral [Active]; [place] Oral [Active]; Omeprazole Oral [Active]; Bentyl Oral bb [Active]; - PMHx: 20:48 Back pain; digestive issues; Diverticulitis; Hormonal issues; bb - PSHx: 20:48 Cholecystectomy; ; back surgery; Tubal ligation; left knee; bb - Immunization history:: Adult Immunizations up to date, Flu vaccine is up to date. - Social history:: Smoking status: Patient/guardian denies using tobacco. - Ebola Screening: : No symptoms or risks identified at this time. Screenin:55 Abuse screen: Denies threats or abuse. Denies injuries from another. Nutritional ed1 screening: No deficits noted. Tuberculosis screening: No symptoms or risk factors identified. Fall Risk None identified. Assessment: 20:55 General: Appears uncomfortable, Behavior is calm, cooperative. Pain: Complains of pain ed1 in right upper quadrant and left upper quadrant Pain radiates to back Pain currently is 10 out of 10 on a pain scale. Quality of pain is described as aching, sharp, Pain began 1 day ago. Is continuous. Neuro: Level of Consciousness is awake, alert, obeys commands, Oriented to person, place, time, situation. Cardiovascular: Denies chest pain, Heart tones S1 S2 present. Respiratory: Airway is patent Respiratory effort is even, unlabored, Respiratory pattern is regular, symmetrical, Breath sounds are clear bilaterally. Denies cough, shortness of breath. GI: Abdomen is non-distended, Bowel sounds present X 4 quads. Abd is soft X 4 quads Abdomen is tender to palpation in right upper quadrant and left upper quadrant Reports upper abdominal pain, nausea, Patient currently denies diarrhea, vomiting. : No signs and/or symptoms were reported regarding the genitourinary system. EENT: No signs and/or symptoms were reported regarding the EENT system. Derm: Skin is intact, is healthy with good turgor, Skin is dry, Skin is normal, Skin temperature is warm. Musculoskeletal: Circulation, motion, and sensation intact. Capillary refill < 3 seconds, in bilateral fingers. Range of motion: intact in all extremities. 21:15 Reassessment: I agree with above assessment. lp1 22:08 Reassessment: Patient appears in no apparent distress at this time. No changes from ed1 previously documented assessment. Patient and/or family updated on plan of care and expected duration. Pain level reassessed. Patient is alert, oriented x 3, equal unlabored respirations, skin warm/dry/pink. Patient states symptoms have not improved. 23:00 Reassessment: Patient appears in no apparent distress at this time. Patient and/or ed1 family updated on plan of care and expected duration. Pain level reassessed. Patient is alert, oriented x 3, equal unlabored respirations, skin warm/dry/pink. Patient states feeling better. Patient states symptoms have improved. 23:50 Reassessment: Provider notified of patient complaint of nausea. lp1 10/23 01:16 Reassessment: Patient appears in no apparent distress at this time. Patient is alert, lp1 oriented x 3, equal unlabored respirations, skin warm/dry/pink. IV infusion completed at this time Patient states feeling better. Vital Signs: 10/22 20:48 BP 125 / 85; Pulse 83; Resp 18 S; Temp 98.4(O); Pulse Ox 83% on R/A; Weight 77.11 kg bb (R); Height 5 ft. 1 in. (154.94 cm) (R); Pain 10/10; 22:08 BP 103 / 75; Pulse 76; Resp 18; Pulse Ox 97% on R/A; Pain 9/10; ed1 23:00 BP 118 / 70; Pulse 71; Resp 16; Pulse Ox 100% on R/A; Pain 6/10; ed1 23:41 BP 120 / 76; Pulse 72; Resp 18; Pulse Ox 100% ; ms 20:48 Body Mass Index 32.12 (77.11 kg, 154.94 cm) bb ED Course: 20:26 Patient arrived in ED. es 20:26 MELIDA GARIBAY is Private Physician. es 20:47 Triage completed. bb 20:48 Arm band placed on Patient placed in an exam room, on a stretcher, on pulse oximetry. bb Family accompanied patient. 20:52 Claudio Mckeon NP is PHCP. pm1 20:52 Donato Ivory MD is Attending Physician. pm1 20:55 Patient has correct armband on for positive identification. Placed in gown. Bed in low ed1 position. Call light in reach. Side rails up X 1. Pulse ox on. NIBP on. Door closed. Visitors limited. Warm blanket given. 21:19 Radiology exam delayed due to lab results not completed at this time. (BUN/Creatinine). vm2 21:39 Initial lab(s) drawn, by me, sent to lab. Inserted saline lock: 20 gauge in right ed1 antecubital area, using aseptic technique. Blood collected. 21:42 Bharti Fletcher, RN is Primary Nurse. lp1 21:52 Radiology exam delayed due to lab results not completed at this time. (BUN/Creatinine). jj2 22:17 CT Abd/Pelvis - W/Contrast: IV contrast only In Process Unspecified. EDMS 10/23 00:41 Awaiting: Completion of IV Flagyl. ed1 01:17 No provider procedures requiring assistance completed. IV discontinued, No lp1 redness/swelling at site. Pressure dressing applied. Administered Medications: 10/22 22:09 Drug: morphine 4 mg Route: IVP; Site: right antecubital; lp1 23:00 Follow up: Response: Pain is decreased lp1 22:09 Drug: Zofran 4 mg Route: IVP; Site: right antecubital; lp1 10/23 00:40 Follow up: Response: No adverse reaction; Nausea is decreased ed1 10/22 23:53 Drug: Zofran 4 mg Route: IVP; Site: right antecubital; lp1 10/23 00:41 Follow up: Response: No adverse reaction; Nausea is decreased ed1 00:40 Drug: Cipro 500 mg Route: PO; ed1 01:16 Follow up: Response: No adverse reaction lp1 00:41 Drug: Flagyl 500 mg Volume: 100 ml; Route: IVPB; Rate: 200 ml/hr; Infused Over: 30 ed1 mins; Site: right antecubital; 01:16 Follow up: IV Status: Completed infusion lp1 00:41 Drug: morphine 4 mg Route: IVP; Site: right antecubital; ed1 01:16 Follow up: Response: Pain is decreased lp1 Outcome: 00:24 Discharge ordered by MD. pm1 01:17 Discharged to home ambulatory, with significant other. lp1 01:17 Condition: good 01:17 Discharge instructions given to patient, Instructed on discharge instructions, follow up and referral plans. medication usage, Demonstrated understanding of instructions, follow-up care, medications, Prescriptions given X 3. 01:18 Patient left the ED. lp1 Signatures: Dispatcher [employer] Armida Amezcua Justin jj2 Ballard, Brenda, RN RN bb Solis, Maria ms Riggs, Erika, LVN LVN ed1 Bharti Fletcher RN RN lp1 Claudio Mckeon NP LICENSED REACTOR OPERATOR pm1 Diana Sheffield [facility]
[2018-10-23] MEDS ORDERED: METRONIDAZOLE 500mg IVPB 500 MG/100 ML BAG IV ONE (00:44)
[2018-10-23] MEDS ORDERED: CIPROFLOXACIN HCL 500 MG TAB ONE (00:44)
[2018-10-23] MEDS ORDERED: MORPHINE 4 MG/ML SYR ONE (00:44)
--- NOTE | 2018-10-23 08:59 | RAD REPORT ---
EXAM DESCRIPTION: CT - Abdomen Pelvis W Contrast - 10/23/2018 2:38 am CLINICAL HISTORY: Abdominal pain A preliminary report was provided at the time of the study and reviewed prior to final report. COMPARISON: CT study September 18/2018 TECHNIQUE: Biphasic, helical CT imaging of the abdomen and pelvis was performed following 100 ml non -ionic IV contrast. No oral contrast administered. All CT scans are performed using dose optimization technique as appropriate and may include automated exposure control or mA/KV adjustment according to patient size. FINDINGS: No suspicious findings in the lung bases. The liver, spleen, and pancreas show no suspicious findings. Gallbladder is absent. Biliary tree dila tation is not outside of normal range for a post cholecystectomy patient. Pattern is not substantiall y different from comparison. Symmetric renal function is seen with no hydronephrosis or suspicious renal mass. No pyelonephritis o r acute parenchymal process. No bladder abnormalities. No adrenal abnormalities. No gastric dilatation or wall thickening. No acute small bowel finding. Patient probably has a minima l hiatal hernia. Moderate stool volume present throughout the colon. Patient has prominent for age de scending and sigmoid diverticulosis. There is trace stranding in the fat adjacent to the descending s igmoid junction. No mass identified. No free air, free fluid or pneumatosis. Phleboliths are present. Uterus and ovaries show no suspici ous findings. No mass or bulky lymphadenopathy. Midline umbilical and supraumbilical hernias are pre sent containing only fat. These are similar to comparison. No suspicious bony findings. IMPRESSION: Prominent left-sided colonic diverticulosis. Trace stranding near the sigmoid descending junction could indicate a very earliest stages of diverticulitis.
== END 2018-10-23 01:18 | disposition home or self-care (01) ==
LOC: ER 20:23
DX: K57.32 Diverticulitis of large intestine without perforation or abscess without bleeding (principal)
CPT/HCPCS: 36415; 74177; 80048; 80076; 81003; 81015; 83690; 85025; 87086; 87088; 96365; 96375; 99284; J2405; Q9967

== ENCOUNTER 2018-12-03 16:10 | Emergency (ER) | payer BC ==
--- OUTSIDE RECORDS SUMMARY | 2018-12-03 16:11 | XMS REPORT ---
:1960 [facility] Address [address] [place] [address] Dr. Hill. [address] [place] [id number] Care Team Providers Name Role Phone Unavailable Unavailable Unavailable Problems This patient has no known problems. Allergies, Adverse Reactions, Alerts This patient has no known allergies or adverse reactions. Medications This patient has no known medications.
[2018-12-03] MEDS ORDERED: DICYCLOMINE HCL 10 MG CAP ONE (16:57)
[2018-12-03] MEDS ORDERED: ONDANSETRON 4 MG/2 ML VIAL ONE ×2 (16:57→19:53)
[2018-12-03] MEDS ORDERED: NA CHLORIDE 0.9% 1,000 ML ONE (16:58)
[2018-12-03] MEDS ORDERED: FAMOTIDINE 20 MG/2 ML VIAL IV ONE (16:58)
[2018-12-03 17:20] LABS: ALT/SGPT 32 U/L (12-78); AST/SGOT 25 U/L (15-37); Albumin 3.8 g/dL (3.4-5.0); Alkaline Phosphatase 57 U/L (45-117); BUN Blood Urea Nitrogen 18 mg/dL (7-18); Bicarbonate 30 mmol/L (21-32); Bilirubin Direct < 0.1 mg/dL (0-0.2); Bilirubin Total 0.3 mg/dL (0.2-1.0); Glucose Level 111 mg/dL (74-106); Lipase 115 U/L (73-393); Magnesium 1.8 mg/dL (1.8-2.4); Potassium 3.6 mmol/L (3.5-5.1); Protein, Total 7.1 g/dL (6.4-8.2); Sodium Level 144 mmol/L (136-145)
[2018-12-03 17:22] LABS: Absolute Lymphocytes (CBC) 1.9 K/uL (0.7-4.9); Absolute Monocytes 0.5 K/uL (0.1-1.3); Absolute Neutrophil 2.6 K/uL (1.8-8.0); Basophils % 0.5 % (0-1.3); Eosinophils % 2.2 % (0-4.4); Hematocrit 37.6 % (36.0-45.0); Lymphocytes % 36.7 % (15.3-44.8); MPV 8.1 fL (7.6-11.3); Monocytes % 9.8 % (3.3-12.3); RBC Red Blood Cell Count 4.04 M/uL (3.86-4.86)
[2018-12-03] MEDS ORDERED: KETOROLAC 30 MG/ML INJ ONE (17:32)
[2018-12-03] MEDS ORDERED: MORPHINE 4 MG/ML SYR ONE ×2 (18:49→19:53)
--- NOTE | 2018-12-03 20:51 | RAD REPORT ---
EXAM DESCRIPTION: CT - Abdomen Pelvis W Contrast - 12/03/2018 8:31 pm CLINICAL HISTORY: Abdominal pain. Vomiting and diarrhea COMPARISON: October 2018 TECHNIQUE: Computed axial tomography of the abdomen and pelvis was obtained. 100 cc Isovue-300 is ad ministered intravenously. Oral contrast was given. All CT scans are performed using dose optimization technique as appropriate and may include automated exposure control or mA/KV adjustment according to patient size. FINDINGS: The liver, spleen, pancreas, adrenals and kidneys appear unremarkable. The appendix is normal caliber. Diverticulosis without evidence of diverticulitis Ventral and umbilical hernias containing fat are again demonstrated The gallbladder has been removed IMPRESSION: No acute abnormality displayed
[2018-12-03 21:01] LABS: Urine Bacteria <20 /HPF (<20); Urine Culture Reflex Order REFLEXED; Urine Mucus 1+ /HPF (NONE SEEN)
[2018-12-03] MEDS ORDERED: LIDOCAINE VISCOUS 2% SOLN 15 ML UDC ONE (21:20)
[2018-12-03] MEDS ORDERED: MAGNE/ALUM HYDROXD 30 ML UCUP ONE (21:20)
--- NOTE | 2018-12-03 21:46 | ER ---
Nurse's Notes [facility] Name: Luz Stacy Age: 58 yrs Sex: Female : 1960 Arrival Date: 12/03/2018 Time: 16:12 Bed 28 Private MD: Diagnosis: Unspecified abdominal pain;Diarrhea, unspecified Presentation: 12/03 16:18 Presenting complaint: Patient states: chronic abd pain that got worse this morning. aa5 Pt's states "she took some probiotics last night that had some kind of detergent (barbicide) that had spilled on them so I called poison control and they said she should be okay". Pt reports diarrhea, reports vomiting last night. Transition of care: patient was not received from another setting of care. Onset of symptoms was November 2018. Risk Assessment: Do you want to hurt yourself or someone else? Patient reports no desire to harm self or others. Initial Sepsis Screen: Does the patient meet any 2 criteria? No. Patient's initial sepsis screen is negative. Does the patient have a suspected source of infection? No. Patient's initial sepsis screen is negative. Care prior to arrival: None. 16:18 Method Of Arrival: Ambulatory aa5 16:18 Acuity: LON 3 aa5 Historical: - Allergies: 16:21 No Known Allergies; aa5 - Home Meds: 17:05 Bentyl Oral [Active]; Methocarbamol Oral [Active]; [place] Oral [Active]; Omeprazole Oral mg2 [Active]; - PMHx: 16:21 Back pain; Hormonal issues; digestive issues; Diverticulitis; aa5 - PSHx: 16:21 Cholecystectomy; ; back surgery; Tubal ligation; left knee; aa5 - Immunization history:: Flu vaccine is up to date. - Social history:: Smoking status: Patient/guardian denies using tobacco. - Ebola Screening: : No symptoms or risks identified at this time. Screenin:03 Abuse screen: Denies threats or abuse. Denies injuries from another. Nutritional mg2 screening: No deficits noted. Tuberculosis screening: No symptoms or risk factors identified. Fall Risk IV access (20 points). Assessment: 17:01 General: Appears in no apparent distress. comfortable, Behavior is calm, cooperative. mg2 Pain: Complains of pain in abdomen Pain does not radiate. Pain currently is 5 out of 10 on a pain scale. Quality of pain is described as aching, crampy, Pain began 1 day ago. Is Alleviated by medications. Neuro: Level of Consciousness is awake, alert, obeys commands, Oriented to person, place, time, situation. Cardiovascular: Capillary refill < 3 seconds Patient's skin is warm and dry. Respiratory: Airway is patent Respiratory effort is even, unlabored, Respiratory pattern is regular, symmetrical. GI: Bowel sounds present X 4 quads. Abd is soft and non tender. : No signs and/or symptoms were reported regarding the genitourinary system. EENT: No signs and/or symptoms were reported regarding the EENT system. Derm: Skin is intact, is healthy with good turgor, Skin is pink, warm \\T\\ dry. normal. Musculoskeletal: Circulation, motion, and sensation intact. Capillary refill < 3 seconds. Vital Signs: 16:22 BP 129 / 84; Pulse 97; Resp 18 S; Temp 97.5(TE); Pulse Ox 100% on R/A; Weight 77.11 kg aa5 (R); Height 5 ft. 2 in. (157.48 cm) (R); Pain 10/10; 17:25 BP 117 / 69; Pulse 90; Resp 18; Pulse Ox 100% on R/A; Pain 5/10; mg2 18:27 BP 124 / 74; Pulse 78; Resp 18; Pulse Ox 100% on R/A; Pain 2/10; mg2 19:34 BP 129 / 87; Pulse 80; Resp 18; Pulse Ox 100% on R/A; Pain 8/10; mg2 22:07 BP 126 / 78; Pulse 80; Resp 18; Pulse Ox 100% on R/A; Pain 4/10; mg2 16:22 Body Mass Index 31.09 (77.11 kg, 157.48 cm) aa5 ED Course: 16:12 Patient arrived in ED. as 16:18 Arm band placed on. aa5 16:21 Triage completed. aa5 16:23 Donato Day PA is PHCP. cp 16:23 Guzman Lamb MD is Attending Physician. cp 16:39 Pal Oneill RN is Primary Nurse. mg2 17:03 No provider procedures requiring assistance completed. Inserted saline lock: 20 gauge mg2 in left antecubital area, using aseptic technique. Blood collected. 17:05 Patient has correct armband on for positive identification. mg2 20:[address] via wheelchair. vm2 20:28 CT completed. Patient tolerated procedure well. Patient moved back from CT. vm2 21:45 Anibal Fong MD is Referral Physician. cp 22:07 IV discontinued, intact, bleeding controlled, No redness/swelling at site. Pressure mg2 dressing applied. Administered Medications: 16:59 Drug: NS 0.9% 1000 ml Route: IV; Rate: 500 ml/hr; Site: left antecubital; mg2 17:00 Drug: Zofran 4 mg Route: IVP; Site: left antecubital; mg2 17:24 Follow up: Response: No adverse reaction; Marked relief of symptoms mg2 17:00 Drug: Pepcid 20 mg Route: IVP; Site: left antecubital; mg2 17:24 Follow up: Response: No adverse reaction; Marked relief of symptoms mg2 17:20 Not Given (Physician Discretion): Bentyl 20 mg PO once cp 17:24 Drug: TORadol 30 mg Route: IVP; Site: left antecubital; mg2 18:36 Follow up: Response: No adverse reaction; Marked relief of symptoms mg2 18:42 Drug: morphine 4 mg Route: IVP; Site: left antecubital; mg2 19:50 Follow up: Response: No adverse reaction; Marked relief of symptoms mg2 19:52 Drug: morphine 4 mg Route: IVP; Site: left antecubital; mg2 21:21 Follow up: Response: No adverse reaction; Marked relief of symptoms mg2 19:52 Drug: Zofran 4 mg Route: IVP; Site: left antecubital; mg2 21:21 Follow up: Response: No adverse reaction; Marked relief of symptoms mg2 21:20 Drug: GI Cocktail without - (Maalox Suspension 30 ml, Lidocaine Liquid 2 % 15 mg2 ml) Route: PO; 22:06 Follow up: Response: No adverse reaction; Marked relief of symptoms mg2 Outcome: 21:46 Discharge ordered by . cp 22:07 Discharged to home ambulatory, with family. mg2 22:07 Condition: stable 22:07 Discharge instructions given to patient, family, Instructed on discharge instructions, follow up and referral plans. medication usage, Demonstrated understanding of instructions, follow-up care, medications, Prescriptions given X 2. 22:08 Patient left the ED. mg2 Signatures: Edith Nelson Audri, RN RN aa5 Donato Day PA PA cp McGuire, Victoria 2 Pal Oneill RN RN mg2 Corrections: (The following items were deleted from the chart) 16:25 16:18 Presenting complaint: Patient states: chronic abd pain that got worse this aa5 morning. Pt's states "she took some probiotics last night that had some kind of detergent on them so I called poison control and they said she should be okay". Pt reports diarrhea, reports vomiting last night. aa5
--- NOTE | 2018-12-03 21:46 | EDPHYS ---
Physician Documentation [facility] Name: Luz Stacy Age: 58 yrs Sex: Female : 1960 Arrival Date: 12/03/2018 Time: 16:12 Bed 28 Private MD: ED Physician Guzman Lamb HPI: 12/03 16:45 This 58 yrs old Female presents to ER via Ambulatory with complaints of cp Abdominal Pain, Diarrhea. 16:45 The patient presents with abdominal pain in the upper abdomen. Onset: The cp symptoms/episode began/occurred this morning. Associated signs and symptoms: Pertinent positives: diarrhea, nausea, Pertinent negatives: blood in stools, constipation, dysuria, fever, vomiting. 16:45 Modifying factors: the symptoms are aggravated by pressure. Severity of pain: in the cp emergency department the pain is unchanged despite home interventions. Historical: - Allergies: 16:21 No Known Allergies; aa5 - Home Meds: 17:05 Bentyl Oral [Active]; Methocarbamol Oral [Active]; [place] Oral [Active]; Omeprazole Oral mg2 [Active]; - PMHx: 16:21 Back pain; Hormonal issues; digestive issues; Diverticulitis; aa5 - PSHx: 16:21 Cholecystectomy; ; back surgery; Tubal ligation; left knee; aa5 - Immunization history:: Flu vaccine is up to date. - Social history:: Smoking status: Patient/guardian denies using tobacco. - Ebola Screening: : No symptoms or risks identified at this time. ROS: 16:50 Constitutional: Negative for body aches, chills, fever, poor PO intake. cp 16:50 Eyes: Negative for injury, pain, redness, and discharge. cp Exam: 17:00 Constitutional: The patient appears in no acute distress, alert, awake, cp non-diaphoretic, non-toxic, well developed, well nourished. 17:00 Head/Face: Normocephalic, atraumatic. cp 17:00 Eyes: Periorbital structures: appear normal, Conjunctiva: normal, no exudate, no injection, Sclera: no appreciated abnormality, Lids and lashes: appear normal, bilaterally. 17:00 ENT: External ear(s): are unremarkable, Nose: is normal, Mouth: Lips: moist, Oral mucosa: pink and intact, moist, Posterior pharynx: is normal, airway is patent, no erythema, no exudate. 17:00 Neck: ROM/movement: is normal, is supple, without pain, no range of motions limitations, no nuchal rigidity. 17:00 Chest/axilla: Inspection: normal, Palpation: is normal, no crepitus, no tenderness. 17:00 Cardiovascular: Rate: normal, Rhythm: regular, Edema: is not appreciated, JVD: is not appreciated. 17:00 Respiratory: the patient does not display signs of respiratory distress, Respirations: normal, no use of accessory muscles, no retractions, no splinting, no tachypnea, labored breathing, is not present, Breath sounds: are clear throughout, no decreased breath sounds, no stridor, no wheezing. 17:00 Abdomen/GI: Inspection: abdomen appears normal, Bowel sounds: active, all quadrants, Palpation: soft, in all quadrants, moderate abdominal tenderness, in the right upper quadrant and left upper quadrant, rebound tenderness, is not appreciated, involuntary guarding, is not appreciated. 17:00 Back: pain, is absent, ROM is normal. 17:00 Musculoskeletal/extremity: Exam is negative for decreased range of motion, deformity, injury. 17:00 Skin: cellulitis, is not appreciated, no rash present. 17:00 Neuro: Orientation: to person, place \T\ time. Mentation: is normal, Cerebellar function: is grossly normal, Motor: moves all fours, strength is normal, Sensation: is normal. Vital Signs: 16:22 BP 129 / 84; Pulse 97; Resp 18 S; Temp 97.5(TE); Pulse Ox 100% on R/A; Weight 77.11 kg aa5 (R); Height 5 ft. 2 in. (157.48 cm) (R); Pain 10/10; 17:25 BP 117 / 69; Pulse 90; Resp 18; Pulse Ox 100% on R/A; Pain 5/10; mg2 18:27 BP 124 / 74; Pulse 78; Resp 18; Pulse Ox 100% on R/A; Pain 2/10; mg2 19:34 BP 129 / 87; Pulse 80; Resp 18; Pulse Ox 100% on R/A; Pain 8/10; mg2 22:07 BP 126 / 78; Pulse 80; Resp 18; Pulse Ox 100% on R/A; Pain 4/10; mg2 16:22 Body Mass Index 31.09 (77.11 kg, 157.48 cm) aa5 MDM: 16:23 Patient medically screened. cp 21:45 Data reviewed: vital signs, nurses notes, lab test result(s), radiologic studies, CT cp scan. 21:45 Differential diagnosis: bowel obstruction, gastritis, gastroesophageal reflux disease, cp pancreatitis, Peptic Ulcer Disease, Perf. Duodenal Ulcer, Perf. Gastric Ulcer, Pyelonephritis, Ureterolithiasis, urinary tract infection. Counseling: I had a detailed discussion with the patient and/or guardian regarding: the historical points, exam findings, and any diagnostic results supporting the discharge/admit diagnosis, lab results, radiology results. Response to treatment: the patient's symptoms have markedly improved after treatment, and as a result, I will discharge patient. Special discussion: Based on the patient's Hx, exam, and Dx evaluation, there is no indication for emergent surgery or inpatient Tx. It is understood by the patient/guardian that if the Sx's persist or worsen they need to return immediately for re-evaluation. 12/03 16:38 Order name: Basic Metabolic Panel cp 12/03 16:38 Order name: CBC with Diff cp 12/03 16:38 Order name: Creatinine for Radiology cp 12/03 16:38 Order name: Hepatic Function cp 12/03 16:38 Order name: Lipase cp 12/03 16:38 Order name: Magnesium cp 12/03 17:20 Order name: Creatinine (Radiology Only); Complete Time: 17:21 EDMS 12/03 17:21 Order name: Basic Metabolic Panel; Complete Time: 17:21 EDMS 12/03 17:22 Interpretation: Normal except: CL 108; GLUC 111. cp 12/03 17:21 Order name: Liver (Hepatic) Function; Complete Time: 17:21 EDMS 12/03 17:21 Order name: Magnesium; Complete Time: 17:21 EDMS 12/03 17:21 Order name: Lipase; Complete Time: 17:21 EDMS 12/03 17:24 Order name: CBC with Automated Diff; Complete Time: 17:34 EDMS 12/03 17:34 Interpretation: Reviewed. cp 12/03 19:52 Order name: Urine Microscopic Only mg2 12/03 20:00 Order name: Urine Dipstick--Ancillary (enter results) mw2 12/03 16:38 Order name: IV Saline Lock; Complete Time: 17:00 cp 12/03 18:29 Order name: CT Abd/Pelvis - W/Contrast cp 12/03 20:00 Order name: Urine --Ancillary (enter results) [facility] 12/03 20:52 Order name: CT EDME 12/03 21:02 Order name: Urine Microscopic Only EDME 12/03 21:54 Order name: Urine --Ancillary EDME 12/03 21:54 Order name: Urine Dipstick-Ancillary EDME 12/03 16:38 Order name: Labs collected and sent; Complete Time: 17:00 cp 12/03 17:35 Order name: PO challenge; Complete Time: 18:27 cp 12/03 20:59 Order name: PO challenge; Complete Time: 21:21 cp Administered Medications: 16:59 Drug: NS 0.9% 1000 ml Route: IV; Rate: 500 ml/hr; Site: left antecubital; mg2 17:00 Drug: Zofran 4 mg Route: IVP; Site: left antecubital; mg2 17:24 Follow up: Response: No adverse reaction; Marked relief of symptoms mg2 17:00 Drug: Pepcid 20 mg Route: IVP; Site: left antecubital; mg2 17:24 Follow up: Response: No adverse reaction; Marked relief of symptoms mg2 17:20 Not Given (Physician Discretion): Bentyl 20 mg PO once cp 17:24 Drug: TORadol 30 mg Route: IVP; Site: left antecubital; mg2 18:36 Follow up: Response: No adverse reaction; Marked relief of symptoms mg2 18:42 Drug: morphine 4 mg Route: IVP; Site: left antecubital; mg2 19:50 Follow up: Response: No adverse reaction; Marked relief of symptoms mg2 19:52 Drug: morphine 4 mg Route: IVP; Site: left antecubital; mg2 21:21 Follow up: Response: No adverse reaction; Marked relief of symptoms mg2 19:52 Drug: Zofran 4 mg Route: IVP; Site: left antecubital; mg2 21:21 Follow up: Response: No adverse reaction; Marked relief of symptoms mg2 21:20 Drug: GI Cocktail without - (Maalox Suspension 30 ml, Lidocaine Liquid 2 % 15 mg2 ml) Route: PO; 22:06 Follow up: Response: No adverse reaction; Marked relief of symptoms mg2 Disposition: 12/03/18 21:46 Discharged to Home. Impression: Unspecified abdominal pain, Diarrhea, unspecified. - Condition is Stable. - Discharge Instructions: Abdominal Pain, Adult, Food Choices to Help Relieve Diarrhea, Adult, Diarrhea, Adult. - Prescriptions for Zofran 4 mg Oral Tablet - take 1 tablet by ORAL route every 12 hours As needed; 20 tablet. Carafate 1 gram Oral Tablet - take 2 tablets by ORAL route every 12 hours take on an empty stomach, beginning on waking and last dose at bedtime. dissolve tablet in small amount warm water prior to ingestion; 100 tablet. - Medication Reconciliation Form, Thank You Letter, Antibiotic Education, Prescription Opioid Use form. - Follow up: Anibal Fong MD; When: 2 - 3 days; Reason: Recheck today's complaints. - Problem is an ongoing problem. - Symptoms have improved. Addendum: 12/06/2018 06:56 Co-signature as Attending Physician, Guzman Lamb MD I agree with the assessment and k dr plan of care. Signatures: Dispatcher [employer] EDME Guzman Lamb MD MD [facility] Dona Mason RN RN aa5 Donato Day PA PA cp Pal Oneill, RN RN mg2 Corrections: (The following items were deleted from the chart) 12/03 22:08 21:46 12/03/2018 21:46 Discharged to Home. Impression: Unspecified abdominal pain; mg2 Diarrhea, unspecified. Condition is Stable. Forms are Medication Reconciliation Form, Thank You Letter, Antibiotic Education, Prescription Opioid Use. Follow up: Anibal Fong; When: 2 - 3 days; Reason: Recheck today's complaints. Problem is an ongoing problem. Symptoms have improved. cp
[2018-12-03 21:53] LABS: Urine Blood TRACE (NEG); Urine Glucose NEGATIVE (NEG); Urine Protein NEGATIVE (NEG); Urine pH 5.5 (5.0-7.0)
== END 2018-12-03 22:08 | disposition home or self-care (01) ==
LOC: ER 16:10
DX: R19.7 Diarrhea, unspecified (principal)
CPT/HCPCS: 36415; 74177; 80048; 80076; 81003; 81015; 81025; 83690; 83735; 85025; 87086; 87088; 96374; 96375; 99284; J2405; J7030; Q9967

== ENCOUNTER 2024-05-24 11:52 | Emergency (ER) | payer BC ==
[2024-05-24] MEDS ORDERED: DIAZEPAM 5 MG TABLET ONE (12:29)
[2024-05-24] MEDS ORDERED: KETOROLAC 30 MG/ML INJ ONE (12:29)
[2024-05-24 12:55] LABS: Specific Gravity 1.023 (1.005-1.030); Sqamous Epithelial 20-50 /HPF (None Seen); Urine Bacteria None Seen /HPF (<20); Urine Bilirubin NEGATIVE (Negative); Urine Blood 1+ (Negative); Urine Clarity Extremely Turbid (Clear); Urine Color Yellow (Yellow); Urine Culture Reflex Order NOT NEEDED; Urine Glucose NEGATIVE (Negative); Urine Ketones NEGATIVE (Negative); Urine Microscopic Reflex YN ORDER UMIC; Urine Mucus Slight /HPF (None Seen); Urine Nitrite NEGATIVE (Negative); Urine Protein TRACE (Negative); Urine RBC <5 /HPF (None Seen); Urine Urobilinogen Normal (Normal); Urine WBC >50 /HPF (<5)
[2024-05-24 14:25] LABS: Absolute Eosinophils 0.3 K/uL (0-0.5); Absolute Lymphocytes (CBC) 1.6 K/uL (0.7-4.9); Absolute Monocytes 0.4 K/uL (0.1-1.3); Absolute Neutrophil 2.4 K/uL (1.8-8.0); Basophils % 0.7 % (0-1.3); Eosinophils % 5.3 % (0-4.4); Hematocrit 36.2 % (36.0-45.0); Lymphocytes % 33.7 % (15.3-44.8); MCH 31.5 pg (27.0-35.0); MCHC 33.1 g/dL (32.0-36.0); MCV 95.1 fL (80-100); MPV 7.5 fL (7.6-11.3); Monocytes % 9.2 % (3.3-12.3); Neutrophils % 51.1 % (41.7-73.7); Nucleated Red Blood Cells % 0.1 % (0-0); Platelets 212 thou/uL (152-406); RBC Red Blood Cell Count 3.81 M/uL (3.86-4.86); Red Cell Distribution Width 13.5 % (12.1-15.2)
[2024-05-24] MEDS ORDERED: MORPHINE 4 MG/ML SYR ONE (14:30)
[2024-05-24 14:40] LABS: Anion Gap 4.9 mEq/L (5.0-15.0); Potassium 3.9 mEq/L (3.5-5.1)
[2024-05-24] MEDS ORDERED: NA CHLORIDE 0.9% 1,000 ML ONE (15:43)
--- NOTE | 2024-05-24 15:50 | RAD REPORT ---
EXAM DESCRIPTION: CT - Abdomen Pelvis Wo Contrast - 05/24/2024 1:53 pm CLINICAL HISTORY: right flank pain COMPARISON: Abdomen Pelvis W Contrast dated 01/22/2023; Abdomen Pelvis W Contrast dated 12/24/2022 ; Abdomen Pelvis W Contrast dated 12/03/2018; Abdomen Pelvis W Contrast dated 10/22/2018 TECHNIQUE: Thin cut axial CT imaging of the abdomen and pelvis was performed without IV contrast. Mu ltiplanar reformats were generated and reviewed. All CT scans are performed using dose optimization technique as appropriate and may include automated exposure control or mA/KV adjustment according to patient size. FINDINGS: No suspicious findings in the lung bases. The liver demonstrates an ill-defined region of Iso to hypoattenuation with heterogeneous signal invo lving most of the left liver lobe, measuring up to 7.6 cm in greatest dimension, resulting in some ca psular contour bulging. No hyperdense components to suggest an acute hemorrhage, however the appearan ce is progressive since the prior exam. Spleen, adrenal glands, and pancreas show no suspicious findi ngs. Gallbladder was surgically removed. Symmetric renal contour, without suspicious parenchymal findings within limits of noncontrast techniq ue. No evidence of radiopaque calculi or hydroureteronephrosis. No dilated bowel loops or bowel wall thickening. No free air, free fluid or inflammatory stranding. S mall midline supraumbilical hernia containing fat, sac measures 3.5 cm in greatest transverse diamete r. Colonic diverticulosis. No suspicious mass or bulky lymphadenopathy. The urinary bladder is withou t significant finding. No suspicious bony findings. IMPRESSION: No acute intra-abdominal process. Suspected enlarging left liver lobe mass, up to 7.6 cm in greatest dimension, not well characterized. This can be further characterized by dedicated liver mass protocol CT or preferably MRI. Colonic diverticulosis. Supraumbilical fat containing ventral hernia.
--- NOTE | 2024-05-24 16:17 | EDPHYS ---
Physician Documentation [facility] Name: Luz Stacy Age: 63 yrs Sex: Female : 1960 Arrival Date: 05/24/2024 Time: 11:52 Bed 14 Private MD: ED Physician Chau Carlson HPI: 05/24 13:12 This 63 yrs old Female presents to ER via Ambulatory with complaints of Flank ms3 Pain. 13:12 63-year-old female with past medical history of chronic back pain, digestive issues, ms3 diverticulitis, hormonal issues presents to the emergency department for right flank pain that radiates down her left leg. She states the pain is 10/10 patient denies any alleviating or inciting factors. She denies fevers, chills, nausea, vomiting, numbness, urinary retention or incontinence, bowel incontinence or constipation.. Historical: - Allergies: 12:10 No Known Allergies; dd2 - PMHx: 12:10 Back pain; digestive issues; Diverticulitis; Hormonal issues; dd2 - PSHx: 12:10 section; total knee sx; Repair of inguinal hernia; dd2 - Immunization history:: Adult Immunizations up to date. - Infectious Disease History:: Denies. - Social history:: Smoking status: Patient denies any tobacco usage or history of. ROS: 13:13 Constitutional: Negative for fever, and chills. Neck: Negative for injury, pain, and ms3 swelling, Cardiovascular: Negative for chest pain, and palpitations. Respiratory: Negative for shortness of breath, cough, wheezing, and pleuritic chest pain, Abdomen/GI: Negative for abdominal pain, nausea, vomiting, diarrhea, and constipation, 13:13 MS/Extremity: Negative for injury and deformity, Skin: Negative for injury, rash, and discoloration, 13:13 Back: Positive for flank pain, on the right, Exam: 13:13 Constitutional: This is a well developed, well nourished patient who is awake, alert, ms3 and in no acute distress. Head/Face: Normocephalic, atraumatic. Cardiovascular: Regular rate and rhythm with a normal S1 and S2. No gallops, murmurs, or rubs. Normal PMI, no JVD. No pulse deficits. Respiratory: Lungs have equal breath sounds bilaterally, clear to auscultation and percussion. No rales, rhonchi or wheezes noted. No increased work of breathing, no retractions or nasal flaring. Skin: Warm, dry with normal turgor. Normal color with no rashes, no lesions, and no evidence of cellulitis. 13:13 Back: pain, that is severe, of the right low back, CVA tenderness, that is moderate, is noted on the right, Vital Signs: 12:04 BP 133 / 63; Pulse 71; Resp 17; Temp 97.1; Pulse Ox 99% ; Weight 68.04 kg; Height 5 ft. dd2 1 in. ; 14:00 BP 154 / 80; Pulse 55; Resp 16; Pulse Ox 100% on R/A; db 14:30 BP 152 / 80; Pulse 56; Resp 16; Pulse Ox 100% on R/A; db 15:00 BP 141 / 80; Pulse 55; Resp 16; Pulse Ox 100% on R/A; db 16:00 BP 149 / 81; Pulse 56; Resp 18; Pulse Ox 100% on R/A; db 17:00 BP 165 / 81; Pulse 53; Resp 16; Pulse Ox 100% on R/A; db 12:04 Body Mass Index 28.34 (68.04 kg, 154.94 cm) dd2 MDM: 12:38 Patient medically screened. ms3 13:13 Differential diagnosis: nephrolithiasis, pyelonephritis, UTI. ms3 13:39 ED course: Patient remains with right flank pain. Will obtain CBC, BMP, and CT to rule ms3 out renal stone.. 16:19 Data reviewed: vital signs, nurses notes, lab test result(s), radiologic studies, and ms3 as a result, I will discharge patient. 16:19 I considered the following discharge prescriptions or medication management in the [facility] emergency department Medications were administered in the Emergency Department. See MAR. Independent interpretation of the following test(s) in the Emergency Department CT Scan: My interpretation is CT abdomen pelvis without contrast images reviewed by me do not reveal nephrolithiasis, pelvic phleboliths present, liver mass present. 05/24 12:03 Order name: Urinalysis w/ reflexes; Complete Time: 12:57 dd2 05/24 13:39 Order name: CBC with Diff; Complete Time: 14:45 ms3 05/24 13:39 Order name: BMP; Complete Time: 14:45 ms3 05/24 13:39 Order name: CT Abd/Pelvis - Without Contrast; Complete Time: 16:01 ms3 05/24 13:39 Order name: IV Saline Lock; Complete Time: 14:21 ms3 05/24 13:39 Order name: Labs collected and sent; Complete Time: 14:21 ms3 Administered Medications: 12:37 Drug: Diazepam PO 10 mg PO once Route: PO; db 14:21 Follow up: Response: No adverse reaction db 12:37 Drug: Ketorolac IM 15 mg IM once Route: IM; Site: right deltoid; db 14:21 Follow up: Response: No adverse reaction db 14:35 Drug: morphine IVP or IV 4 mg IVP once over 4 mins Route: IVP; Infused Over: 4 mins; db Site: right antecubital; 15:50 Follow up: Response: No adverse reaction db 15:51 Drug: NS 0.9% IV 1000 ml IV at 1 bolus Per protocol; 1000 mL bolus Route: IV; Rate: 1 db bolus; Site: right antecubital; 17:17 Follow up: Response: No adverse reaction; IV Status: Completed infusion; IV Intake: db 1000ml 16:35 Drug: Decadron - Dexamethasone IVP 10 mg IVP once Route: IVP; Site: right antecubital; db 17:17 Follow up: Response: No adverse reaction db Disposition Summary: 05/24/24 16:16 Discharge Ordered Notes: Location: Home ms3 Condition: Stable ms3 Diagnosis - Liver Mass ms3 - Sciatica, right side ms3 - Elevated blood-pressure reading, without diagnosis of hypertension ms3 Followup: ms3 - With: Private Physician - When: 2 - 3 days - Reason: Recheck today's complaints Discharge Instructions: - Discharge Summary Sheet ms3 - Hypertension, Adult ms3 - Sciatica ms3 - Incidental Abnormal Radiological Finding ms3 Forms: - Medication Reconciliation Form ms3 - Antibiotic Education ms3 - Prescription Opioid Use ms3 - Patient Portal Instructions ms3 - Leadership Thank You Letter ms3 Prescriptions: - Cyclobenzaprine 10 mg Oral Tablet - take 1 tablet ORAL route every 8 hours As needed; 30 tablet; Refills: 0, ms3 Product Selection Permitted Signatures: Dispatcher [employer] Chau Brandon DO DO ms3 Denisse Jose, RN RN db XIMENA YOO RN RN dd2 Corrections: (The following items were deleted from the chart) 12:04 12:04 Urinalysis+U.LAB.BRZ ordered. EDMS EDMS 13:40 13:40 Abdomen Pelvis Wo Con+CT.RAD.BRZ ordered. EDMS EDMS
--- NOTE | 2024-05-24 16:17 | ER ---
Nurse's Notes [facility] Name: Luz Stacy Age: 63 yrs Sex: Female : 1960 Arrival Date: 05/24/2024 Time: 11:52 Bed 14 Private MD: Diagnosis: Liver Mass;Sciatica, right side;Elevated blood-pressure reading, without diagnosis of hypertension Presentation: 05/24 12:04 Chief complaint: Patient states: Pt c/o rt flank pain and rt butt pain x2 weeks. Went dd2 to the urgent care past Thursday and was given macrobid. Has since completed antibiotic and continues to have pain. Coronavirus screen: At this time, the client does not indicate any symptoms associated with coronavirus-19. Ebola Screen: No symptoms or risks identified at this time. Initial Sepsis Screen: Does the patient meet any 2 criteria? No. Patient's initial sepsis screen is negative. Does the patient have a suspected source of infection? No. Patient's initial sepsis screen is negative. Risk Assessment: Do you want to hurt yourself or someone else? Patient reports no desire to harm self or others. Onset of symptoms is unknown. 12:04 Method Of Arrival: Ambulatory dd2 12:04 Acuity: LON 3 dd2 Triage Assessment: 12:10 General: Appears uncomfortable, Behavior is calm, cooperative. Pain: Complains of pain dd2 in rt flank, rt buttocks. Historical: - Allergies: 12:10 No Known Allergies; dd2 - PMHx: 12:10 Back pain; digestive issues; Diverticulitis; Hormonal issues; dd2 - PSHx: 12:10 section; total knee sx; Repair of inguinal hernia; dd2 - Immunization history:: Adult Immunizations up to date. - Infectious Disease History:: Denies. - Social history:: Smoking status: Patient denies any tobacco usage or history of. Screenin:51 [facility] ED Fall Risk Assessment (Adult) History of falling in the last 3 months, db including since admission No falls in past 3 months (0 pts) Confusion or Disorientation No (0 pts) Intoxicated or Sedated No (0 pts) Impaired Gait No (0 pts) Mobility Assist Device Used No (0 pt) Altered Elimination No (0 pt) Score/Fall Risk Level 0 - 2 = Low Risk Oriented to surroundings, Maintained a safe environment. Abuse screen: Denies threats or abuse. Denies injuries from another. Nutritional screening: No deficits noted. Tuberculosis screening: No symptoms or risk factors identified. Assessment: 14:00 Reassessment: Patient appears in no apparent distress at this time. Patient and/or db family updated on plan of care and expected duration. Pain level reassessed. Patient is alert, oriented x 3, equal unlabored respirations, skin warm/dry/pink. General: Appears in no apparent distress. comfortable, Behavior is calm, cooperative. Neuro: Level of Consciousness is awake, alert, obeys commands, Oriented to person, place, time. Respiratory: Airway is patent Respiratory effort is even, unlabored, Respiratory pattern is regular, symmetrical. 15:31 Reassessment: Patient appears in no apparent distress at this time. Patient and/or db family updated on plan of care and expected duration. Pain level reassessed. Patient is alert, oriented x 3, equal unlabored respirations, skin warm/dry/pink. Patient states feeling better. Patient states symptoms have improved. 15:51 Reassessment: Patient appears in no apparent distress at this time. Patient and/or db family updated on plan of care and expected duration. Pain level reassessed. Patient is alert, oriented x 3, equal unlabored respirations, skin warm/dry/pink. 16:33 Reassessment: PATIENT NS PLACED ON A PRESSURE BAG. db 17:15 Reassessment: Patient appears in no apparent distress at this time. Patient and/or db family updated on plan of care and expected duration. Pain level reassessed. Patient is alert, oriented x 3, equal unlabored respirations, skin warm/dry/pink. Patient states feeling better. Patient states symptoms have improved. Vital Signs: 12:04 BP 133 / 63; Pulse 71; Resp 17; Temp 97.1; Pulse Ox 99% ; Weight 68.04 kg; Height 5 ft. dd2 1 in. ; 14:00 BP 154 / 80; Pulse 55; Resp 16; Pulse Ox 100% on R/A; db 14:30 BP 152 / 80; Pulse 56; Resp 16; Pulse Ox 100% on R/A; db 15:00 BP 141 / 80; Pulse 55; Resp 16; Pulse Ox 100% on R/A; db 16:00 BP 149 / 81; Pulse 56; Resp 18; Pulse Ox 100% on R/A; db 17:00 BP 165 / 81; Pulse 53; Resp 16; Pulse Ox 100% on R/A; db 12:04 Body Mass Index 28.34 (68.04 kg, 154.94 cm) dd2 ED Course: 11:57 Patient arrived in ED. mg5 11:58 Chau Carlson DO is Attending Physician. ms3 12:10 Triage completed. dd2 12:10 Arm band placed on right wrist. Patient placed in an exam room, on a stretcher, on dd2 pulse oximetry, Patient notified of wait time. 12:27 Denisse Jose, RN is Primary Nurse. db 13:55 CT Abd/Pelvis - Without Contrast In Process Unspecified. EDMS 14:12 Initial lab(s) drawn, by me, sent to lab. Inserted saline lock: 22 gauge in right db antecubital area, using aseptic technique. Blood collected. Flushed with 10 mL NS. 17:15 Patient has correct armband on for positive identification. Bed in low position. Call db light in reach. Side rails up X 1. Provided Education on: DISCHARGE. Pulse ox on. NIBP on. Warm blanket given. 17:15 No provider procedures requiring assistance completed. IV discontinued, intact, db bleeding controlled, No redness/swelling at site. Administered Medications: 12:37 Drug: Diazepam PO 10 mg PO once Route: PO; db 14:21 Follow up: Response: No adverse reaction db 12:37 Drug: Ketorolac IM 15 mg IM once Route: IM; Site: right deltoid; db 14:21 Follow up: Response: No adverse reaction db 14:35 Drug: morphine IVP or IV 4 mg IVP once over 4 mins Route: IVP; Infused Over: 4 mins; db Site: right antecubital; 15:50 Follow up: Response: No adverse reaction db 15:51 Drug: NS 0.9% IV 1000 ml IV at 1 bolus Per protocol; 1000 mL bolus Route: IV; Rate: 1 db bolus; Site: right antecubital; 17:17 Follow up: Response: No adverse reaction; IV Status: Completed infusion; IV Intake: db 1000ml 16:35 Drug: Decadron - Dexamethasone IVP 10 mg IVP once Route: IVP; Site: right antecubital; db 17:17 Follow up: Response: No adverse reaction db Medication: 15:51 VIS not applicable for this client. db Intake: 17:17 IV: 1000ml; Total: 1000ml. db Outcome: 16:16 Discharge ordered by . ms3 17:15 Discharged to home ambulatory, with family, db 17:15 Condition: stable 17:15 Discharge instructions given to patient, Instructed on discharge instructions, follow up and referral plans. Prescriptions given X 1, 17:17 Patient left the ED. db Signatures: Dispatcher [employer] EDMS Chau Carlson DO DO ms3 Denisse Jose, RN RN db Josselin Garcia mg5 XIMENA YOO, RN RN dd2
[2024-05-24] MEDS ORDERED: dexAMETHasone 10 MG/ML VIAL ONE (16:43)
[2024-05-24 17:21] VITALS: TEMP 97.1
[2024-05-24 17:23] VITALS: O2SAT 100
[2024-05-24 17:30] VITALS: BP 165/81
== END 2024-05-24 17:17 | disposition home or self-care (01) ==
LOC: ER 11:52
DX: M54.31 Sciatica, right side (principal); R16.0 Hepatomegaly, not elsewhere classified; R03.0 Elevated blood-pressure reading, without diagnosis of hypertension
CPT/HCPCS: 85025; 81001; 80048; 36415; 74176; J1100; J7030

== ENCOUNTER 2024-09-17 12:12 | Emergency (ER) | payer BC ==
--- OUTSIDE RECORDS SUMMARY | 2024-09-17 12:23 | XMS REPORT | Clinical Summary ---
Author Name Unknown Organization [facility] Address [address] [place] [address] Care Team Providers Care Orthopaedic Surgeon Name Role Phone Althea Raymond RN Unavailable [phone] Encounters Date Type Department Care Team Description 06/01/2024 Documentation [facility] [address] [place] [address] Althea Raymond, RN 06/01/2024 Telephone [facility] PATIENT ACCESS Lenora Luis RN 05/31/2024 Telephone [facility] PATIENT ACCESS Lenora Luis, RN after 09/18/2023 Social History Tobacco Use Types Packs/Day Years Used Date Smoking Tobacco: Never Assessed Comments Unknown Sex and Gender Information Value Date Recorded Sex Assigned at Not on file Legal Sex Female 5:38 PM CDT Gender Identity Not on file Sexual Orientation Not on file Plan of Treatment Health Maintenance Due Date Last Done Comments COVID-19 Vaccine (2023-2 5 season) 2024 01/04/2021, 12/14/2020 Influenza Vaccine (#1) 2024 2, 12/12/2019 Pneumococcal Vaccine: Pediatrics (0 to 5 Years) and At-Risk Patients (6 to 64 Years) Aged Out No longer eligible b ased on patient's age to complete this topic Insurance [facility] [place] PPO [place] [address] [place] [address] PPO POS Care Teams Orthopaedic Surgeon Relationship Specialty Start Date End Date Althea Raymond, RN [address] [place] [address] [email or web address] Intake Nurse Navigator Nursing 05/31/24 05/31/24
[2024-09-17 13:06] LABS: Absolute Lymphocytes (CBC) 0.6 K/uL (0.7-4.9); Absolute Monocytes 0.6 K/uL (0.1-1.3); Basophils % 0.1 % (0-1.3); Eosinophils % 0.1 % (0-4.4); Hematocrit 46.5 % (36.0-45.0); Hemoglobin 15.2 g/dL (12.0-15.0); Lymphocytes % 5.7 % (15.3-44.8); MCHC 32.7 g/dL (32.0-36.0); MCV 91.6 fL (80-100); MPV 8.3 fL (7.6-11.3); Monocytes % 5.1 % (3.3-12.3); Platelets 216 thou/uL (152-406); RBC Red Blood Cell Count 5.08 M/uL (3.86-4.86); Red Cell Distribution Width 15.8 % (12.1-15.2)
[2024-09-17] MEDS ORDERED: LORazepam 2 MG/ML VIAL ONE ×2 (13:10→17:51)
[2024-09-17 13:13] LABS: PT Prothrombin Time 13.6 SECONDS (9.4-12.5); PTT, Activated Partial Thromb 28.3 SECONDS (24.3-36.9); Protime INR 1.22
[2024-09-17] MEDS ORDERED: LEVETIRACETAM 500 MG/5 ML VIAL IV ONE (13:16)
[2024-09-17] MEDS ORDERED: NA CHLORIDE 0.9% 100 ML ONE (13:16)
[2024-09-17 13:23] LABS: Albumin 3.6 g/dL (3.4-5.0); Albumin/Globulin Ratio 0.9 (1.1-1.8); Anion Gap 15.9 mEq/L (5.0-15.0); Bilirubin Total 4.8 mg/dL (0.2-1.0); Globulin 4.1 g/dL (2.3-3.5); Potassium 3.9 mEq/L (3.5-5.1); Protein, Total 7.7 g/dL (6.4-8.2)
[2024-09-17 13:36] LABS: Troponin High Sensitivity 258.3 pg/mL (<58.9)
--- NOTE | 2024-09-17 13:37 | RAD REPORT ---
EXAM: Chest Single View HISTORY: seizure COMPARISON: 09/18/2018 FINDINGS: LUNGS/PLEURA: Low lung volumes which likely accentuates the pulmonary vasculature. The interstitium i s prominent however. MEDIASTINUM: The mediastinal silhouette is within normal limits. CARDIAC: Cardiomegaly. UPPER ABDOMEN: No significant abnormality. BONES: No acute fracture. LINES/TUBES/OTHER: N/A IMPRESSION: Low lung volumes which accentuates the pulmonary interstitium. Nonetheless, cannot exclude either mil d edema or an atypical infectious process. No consolidative airspace disease.
[2024-09-17 13:41] LABS: Blood Morphology Comment NOT SEEN (NOT SEEN); Platelet Estimate ADEQ; White Blood Cell Scan OK (OK)
--- NOTE | 2024-09-17 13:43 | RAD REPORT ---
EXAMINATION: CT HEAD WITHOUT CONTRAST CLINICAL INDICATION: Female, 63 years old.SEIZURE TECHNIQUE: Axial CT images from the skull base to the vertex without intravenous contrast. Coronal an d sagittal reformatted images were created from the data set. One or more of the following dose reduction techniques were used: Automated exposure control, adjustment of the mA and/or kV according to patient size, and/or iterative reconstruction. Unless otherwise specified, incidental findings do not require dedicated imaging follow-up. [id number]. COMPARISON: No prior exam. FINDINGS: INTRACRANIAL: No acute intracranial hemorrhage. No hydrocephalus. No mass effect or midline shift. No significant white matter disease. VASCULATURE: No visualized abnormalities in the arteries or dural venous sinuses. SCALP/SKULL: No significant soft tissue or osseous abnormalities. SINUSES: The visualized paranasal sinuses and mastoid air cells are predominantly clear. IMPRESSION: No acute intracranial abnormality.
--- NOTE | 2024-09-17 13:54 | RAD REPORT ---
EXAMINATION: CTA CHEST PE CLINICAL INDICATION: Female, 63 years old. cancer, seizure, known atrial mass TECHNIQUE: This examination was performed according to an angiographic protocol with 3D post-processi ng. This involves 3D reconstructions, MIPs, volume rendered images and/or shaded surface rendering. One or more of the following dose reduction techniques were used: Automated exposure control, adjustm ent of the mA and/or kV according to patient size, and/or iterative reconstruction. Unless otherwise specified, incidental findings do not require dedicated imaging follow-up. [id number]. COMPARISON: CT abdomen/pelvis 05/24/2024 FINDINGS: LOWER NECK: Visualized thyroid gland and soft tissues are normal. LUNGS AND AIRWAYS: Motion artifact. No consolidative airspace disease. Suspect intralobular septal th ickening. PLEURA: No pleural effusion. No pneumothorax. Hemidiaphragms are normally positioned. MEDIASTINUM AND LYMPH NODES: No mediastinal mass or fluid collection. Normal size mediastinal, hilar, and axillary lymph nodes. THORACIC AORTA: Normal caliber and configuration. PULMONARY ARTERIES: No central pulmonary embolus. Evaluation of the segmental and subsegmental pulmon georgina arteries is not possible due to the degree of motion artifact. HEART: Mild cardiomegaly. No coronary calcifications. Low-density structure in the right atrium, righ t ventricle, and IVC measures nearly 7 cm in maximal dimension. OSSEOUS STRUCTURES AND CHEST WALL: Intact. UPPER ABDOMEN: Perihepatic ascites partially imaged. Suspected left hepatic lobe mass is not well fermin luated. There is increased stranding left upper quadrant that is only partially imaged. IMPRESSION: No central pulmonary embolus. Right heart mass which likely spans the right atrium, right ventricle, and IVC is not well evaluated. Possible mild interstitial edema but evaluation limited due to the degree of motion artifact. Partially imaged known left hepatic lobe mass. Mild perihepatic ascites and stranding in the left upp er quadrant is not well assessed. Consider dedicated CT of the abdomen/pelvis if there is concern for acute intra-abdominal findings.
[2024-09-17] MEDS ORDERED: NA CHLORIDE 0.9% 500 ML ONE (14:27)
[2024-09-17] MEDS ORDERED: CEFTRIAXONE 1000 MG/VIAL ONE (14:27)
[2024-09-17 14:31] LABS: Specific Gravity 1.023 (1.005-1.030); Sqamous Epithelial <5 /HPF (None Seen); Urine Bacteria <20 /HPF (<20); Urine Bilirubin NEGATIVE (Negative); Urine Blood Trace (Negative); Urine Clarity Turbid (Clear); Urine Color Yellow (Yellow); Urine Culture Reflex Order NOT NEEDED; Urine Glucose NEGATIVE (Negative); Urine Ketones NEGATIVE (Negative); Urine Microscopic Reflex YN ORDER UMIC; Urine Mucus Slight /HPF (None Seen); Urine Nitrite NEGATIVE (Negative); Urine Protein 1+ (Negative); Urine RBC <5 /HPF (None Seen); Urine Urobilinogen Normal (Normal); Urine WBC <5 /HPF (<5); Urine pH 5.5 (5.0-7.0)
--- NOTE | 2024-09-17 14:34 | ER ---
Nurse's Notes [facility] Name: Luz Stacy Age: 63 yrs Sex: Female : 1960 Arrival Date: 09/17/2024 Time: 12:12 Bed 4 Private MD: Diagnosis: Epileptic seizures related to external causes, not intractable, with status epilepticus;Altered mental status, unspecified Presentation: 09/17 12:25 Chief complaint: EMS states: family called 911 after pt was found unresponsive, pt aa5 completed approximately 1 minutes of CPR prior to EMS arrival. EMS reports pt was unresponsive with spontaneous respirations upon scene arrival and family described possible seizure activity prior to their arrival. Pt was recently diagnosed with Liver Cancer. 12:25 Coronavirus screen: At this time, the client does not indicate any symptoms associated aa5 with coronavirus-19. Ebola Screen: Patient denies travel to an Ebola-affected area in the 21 days before illness onset. Initial Sepsis Screen: Does the patient meet any 2 criteria? No. Patient's initial sepsis screen is negative. Does the patient have a suspected source of infection? No. Patient's initial sepsis screen is negative. Risk Assessment: Do you want to hurt yourself or someone else? Unable to obtain. Onset of symptoms was September 17, 2024. Care prior to arrival: IV initiated. 20 GA, in the right antecubital area, Glucose check: 198. 12:25 Acuity: LON 2 aa5 12:25 Method Of Arrival: EMS: [facility] aa5 Historical: - Allergies: 12:25 No Known Allergies; aa5 - PMHx: 12:25 Back pain; digestive issues; Diverticulitis; Hormonal issues; Liver Cancer ; with aa5 metastasis (Unknown); - PSHx: 12:25 section; Repair of inguinal hernia; total knee sx; aa5 - Immunization history:: Adult Immunizations unknown. - Infectious Disease History:: Denies. - Family history:: not pertinent. - Social history:: Smoking status: unknown. - Hospitalizations: : No recent hospitalization is reported. Screenin:25 [facility] ED Fall Risk Assessment (Adult) History of falling in the last 3 months, aa5 including since admission Confusion or Disorientation Yes (5 pts) Intoxicated or Sedated No (0 pts) Impaired Gait Mobility Assist Device Used Altered Elimination Score/Fall Risk Level 3 or more points = High Risk Oriented to surroundings, Maintained a safe environment, Educated pt \T\ family on fall prevention, incl call for assistance when getting out of bed, Hourly rounding (assess needs \T\ fall precautionary measures) done, Utilized family, sitter, or virtual armament aircraft mechanic as indicated. 13:00 Abuse screen: no signs noted. aa5 13:00 Nutritional screening: No deficits noted. Tuberculosis screening: No symptoms or risk aa5 factors identified. Assessment: 12:25 General: Behavior is uncooperative, combative getting into gown. . Pain: Unable to use aa5 pain scale. Does not appear to understand pain scale. Neuro: Level of Consciousness is awake, alert, unable to follow commands, speech is clear. . Oriented to none Pt moving all 4 extremities. . Cardiovascular: Heart tones S1 S2 present Rhythm is regular. Respiratory: Airway is patent Respiratory effort is even, unlabored, Respiratory pattern is regular, symmetrical. GI: No signs and/or symptoms were reported involving the gastrointestinal system. : No signs and/or symptoms were reported regarding the genitourinary system. EENT: No signs and/or symptoms were reported regarding the EENT system. Derm: Skin is pink, warm \T\ dry. Musculoskeletal: Range of motion: intact in all extremities. 13:12 Reassessment: Seizure activity reported by family, to bedside with Dr. Grajeda, seizure aa5 activity noted, jerking of all 4 extremities, pt placed on left side by Dr. Grajeda, seizure lasted approximately 30 seconds. O2 via NC at 2 L . . 13:14 Reassessment: Pt A\T\O x 0, not able to follow commands, O2 via 2 L NC, RR 20. MD remains aa5 at bedside. . 13:25 Reassessment: Pt to CT scan, accompanied by me, train electronic technician and security installation sales technician, on oxygen via 2 L aa5 NC, on monitor. Pt sedated post Ativan administration, opens eyes to tactile stimuli. . 13:42 Reassessment: Pt back from CT scan . aa5 14:35 Reassessment: Pt resting in bed with eyes closed, equal and relaxed respirations. Pt's aa5 family remains at bedside. . 14:35 Cardiovascular: Rhythm is sinus rhythm. aa5 15:30 Reassessment: Pt's family remains at bedside. Pt with eyes closed, equal and unlabored aa5 respirations. . 16:45 Reassessment: Pt's family requesting pain medication for pt, pt's family reports pt is aa5 reporting pain to abdomen, pt moaning intermittently, pt not answering questions and unable to follow commands, remains A\T\O x 0. . 17:35 Reassessment: Pt with eyes closed, respirations even and unlabored, skin is aa5 pink/warm/dry. Pt's family remains at bedside. Awaiting transfer to [facility]. . 17:50 Reassessment: Seizure activity noted lasting approximately 15 seconds. MD at bedside. . aa5 17:51 Reassessment: Pt now post-ictal, equal and unlabored respirations. Family at bedside. . aa5 17:55 Reassessment: Pt sedated, equal and unlabored respirations, opens eyes to tactile aa5 stimuli, unable to follow commands, A\T\ O x 0. . 18:15 Reassessment: Report was given to Uzma at [facility]. . aa5 19:00 Reassessment: Report given to [facility]. aa5 Vital Signs: 12:25 BP 154 / 102; Pulse 90; Resp 16 S; Temp 98.4(A); Pulse Ox 95% on R/A; aa5 13:35 BP 169 / 99; Pulse 95; Resp 15 S; Pulse Ox 97% on 2 lpm NC; aa5 14:42 BP 165 / 105; Pulse 85; Resp 17; Pulse Ox 97% on 2 lpm NC; hb 14:43 Weight 65 kg; Height 5 ft. 1 in. ; hb 15:30 BP 177 / 101; Pulse 83; Resp 18 S; Temp 98(A); Pulse Ox 96% on R/A; aa5 16:45 Pulse 79; Resp 14 S; Pulse Ox 97% on R/A; aa5 17:51 BP 171 / 89; Pulse 84; Resp 16 S; Pulse Ox 99% on 2 lpm NC; aa5 18:30 BP 158 / 92; Pulse 81; Resp 14 S; Pulse Ox 98% on 2 lpm NC; aa5 19:00 BP 168 / 111; Pulse 93; Resp 16 S; Pulse Ox 99% on 2 lpm NC; aa5 14:43 Body Mass Index 27.08 (65.00 kg, 154.94 cm) hb 16:45 Pt moving intermittently uncooperative, unable to obtain accurate BP at this time. aa5 ED Course: 12:25 Patient arrived in ED. em1 12:25 Arm band placed on. aa5 12:25 Patient has correct armband on for positive identification. Placed in gown. Bed in low aa5 position. Call light in reach. Side rails up X2. Client placed on continuous cardiac and pulse oximetry monitoring. NIBP monitoring applied. exploration engineer on. Pulse ox on. NIBP on. 12:32 Rommel Grajeda MD is Attending Physician. rn 12:32 Dona Mason, LENNIE is Primary Nurse. aa5 12:36 Triage completed. aa5 12:50 Maintain EMS IV. Dressing intact. Good blood return noted. Site clean \T\ dry. Gauge \T\ aa 5 site: 20G to R AC . 12:53 Initial lab(s) drawn, by mt, sent to lab. First set of blood cultures drawn by mt, EKG aa5 done. 12:55 Inserted saline lock: 18 gauge in left antecubital area, using aseptic technique. aa5 13:16 Chest Single View XRAY In Process Unspecified. EDMS 13:34 CT Head Brain wo Cont In Process Unspecified. EDMS 13:42 CT Chest For PE Angio In Process Unspecified. EDMS 14:01 Oreilly cath inserted, using sterile technique, 16 Fr., by mt, balloon inflated, to aa5 gravity drainage. 14:52 1435 called [facility] talked to Kristan. sp 15:23 1511 called. sp 15:24 Kristan with [facility] called to report at no beds due to Bed Capacity. sp 15:26 called [facility] for transfer. sp 15:32 talked to Yolo at the transfer center with [facility]. sp 15:54 MD called. sp 16:57 called [facility] for update on transfer. Moving pts around to make bed for our transfer to [facility]. 18:[address] Nina Alatorre accepted pt 1721 Eddie Basurto admin approval to [facility] ICU 8a sp room 812 report number [phone] [id number] called [facility] for transport talked to Eliane. 19:00 No provider procedures requiring assistance completed. Patient transferred, IV remains aa5 in place. 19:05 Primary Nurse role handed off by Dona Mason RN aa5 Administered Medications: 13:14 Drug: Ativan IVP 2 mg IVP once Route: IVP; Site: left antecubital; aa5 13:20 Follow up: Response: No adverse reaction aa5 13:19 Drug: Keppra IV 1000 mg IV at calculated rate once Route: IV; Rate: calculated rate; aa5 Site: left antecubital; 13:35 Follow up: Response: No adverse reaction; IV Status: Completed infusion aa5 14:35 Drug: NS 0.9% IV 500 ml 500 ml IV at 1 bolus once; to be given as a bolus over 30 aa5 minutes Volume: 500 ml; Route: IV; Rate: 1 bolus; Site: left antecubital; 15:05 Follow up: IV Status: Completed infusion; IV Intake: 500ml aa5 14:35 Drug: Rocephin IV 1 grams IV at calculated rate once; Given slow IV push per pharmacy aa5 instructions Route: IV; Rate: calculated rate; Site: left antecubital; 14:40 Follow up: IV Status: Completed infusion aa5 17:35 Drug: morphine IVP or IV 2 mg IVP once over 4 mins Route: IVP; Infused Over: 4 mins; aa5 Site: left antecubital; 17:40 Follow up: Response: No adverse reaction aa5 17:51 Drug: Ativan IVP 2 mg IVP once Route: IVP; Site: left antecubital; aa5 18:00 Follow up: Response: No adverse reaction; Patient is sedated aa5 19:12 Drug: hydrALAZINE IVP 5 mg IVP once Route: IVP; Site: right antecubital; rs5 19:12 Follow up: Response: Medication Administered at Departure aa5 Medication: 13:02 VIS not applicable for this client. aa5 Intake: 15:05 IV: 500ml; Total: 500ml. aa5 Outcome: 14:34 Discharge ordered by . rn 14:35 ER care complete, transfer ordered by MD. truong 19:00 Transferred by ground EMS to [facility], Transfer form aa5 completed. X-rays sent w/ patient. Note: Report given to [facility] 19:00 Condition: stable aa5 19:00 Instructed on the need for transfer, Demonstrated understanding of instructions, Instructions given to family. 19:15 Patient left the ED. aa5 Signatures: Dispatcher [employer] EDMS Mara Covington Roman, MD MD rn Martinez, Eric em1 Dona Mason RN RN aa5 Cece Reyes, LENNIE RN Antonio Merino RN RN rs5 Corrections: (The following items were deleted from the chart) 12:36 12:25 Chief complaint: EMS states: family called 911 after pt was found unresponsive, aa5 pt completed approximately 1 minutes of CPR prior to EMS arrival. EMS reports pt was unresponsive with spontaneous respirations upon scene arrival and family described possible seizure activity prior to their arrival. aa5 12:38 12:25 Care prior to arrival: IV initiated. 20 GA, in the right antecubital area, aa5 aa5 13:00 13:00 [facility] ED Fall Risk Assessment (Adult) History of falling in the last 3 months, aa5 including since admission aa5 13:57 13:25 Reassessment: Pt to CT scan, accompanied by me, train electronic technician and security installation sales technician, on oxygen aa5 via 2 L NC, on monitor. . aa5 16:00 14:43 48 kg; Height 5 ft. 1 in.; BMI: 19.9; hb hb 19:05 18:56 Patient left the ED. aa5 aa5 19:23 19:22 Patient left the ED. aa5 aa5
--- NOTE | 2024-09-17 14:34 | EDPHYS ---
Physician Documentation [facility] Name: Luz Stacy Age: 63 yrs Sex: Female : 1960 Arrival Date: 09/17/2024 Time: 12:12 Bed 4 Private MD: ED Physician Rommel Grajeda HPI: 09/17 13:19 This 63 yrs old Female presents to ER via EMS with complaints of Probable rn Seizure. 12:44 Family reports last known normal was yesterday, family member here with patient noticed rn change in mental status as of midnight. Today noticed decreased responsiveness, temporarily noticed right-sided weakness then patient had seizure-like activity. Family was not sure if she was breathing so they started CPR, patient woke up. No history of seizures. Does have active liver cancer with metastasis but not to brain. No recent trauma. No known fever or chills. Patient is much more alert now but confused.. 13:19 The patient presents after having a single isolated seizure. Associated injury: The rn patient did not suffer any apparent associated injury. Current symptoms: confusion, decreased level of consciousness. The patient has not experienced similar symptoms in the past. Historical: - Allergies: 12:25 No Known Allergies; aa5 - PMHx: 12:25 Back pain; digestive issues; Diverticulitis; Hormonal issues; Liver Cancer ; with aa5 metastasis (Unknown); - PSHx: 12:25 section; Repair of inguinal hernia; total knee sx; aa5 - Immunization history:: Adult Immunizations unknown. - Infectious Disease History:: Denies. - Family history:: not pertinent. - Social history:: Smoking status: unknown. - Hospitalizations: : No recent hospitalization is reported. ROS: 14:11 Unable to obtain ROS due to altered mental status, rn Exam: 14:11 Constitutional: This is a well developed, well nourished patient who is awake, alert, rn appears postictal Eyes: Pupils equal round and reactive to light, extra-ocular motions intact. ENT: Dry mucous membranes Cardiovascular: Regular rate and rhythm. No pulse deficits. Respiratory: No increased work of breathing, no retractions or nasal flaring. Abdomen/GI: Soft, non-tender MS/ Extremity: Pulses equal, no cyanosis. Neurovascular intact. Full, normal range of motion. Equal circumference. Neuro: Awake, appears postictal.. Cranial nerves II-XII grossly intact. Motor strength 4/5 in all extremities, moves all 4 extremities equally. Sensory grossly intact. 16:34 ECG was reviewed by the Attending Physician. rn Vital Signs: 12:25 BP 154 / 102; Pulse 90; Resp 16 S; Temp 98.4(A); Pulse Ox 95% on R/A; aa5 13:35 BP 169 / 99; Pulse 95; Resp 15 S; Pulse Ox 97% on 2 lpm NC; aa5 14:42 BP 165 / 105; Pulse 85; Resp 17; Pulse Ox 97% on 2 lpm NC; hb 14:43 Weight 65 kg; Height 5 ft. 1 in. ; hb 15:30 BP 177 / 101; Pulse 83; Resp 18 S; Temp 98(A); Pulse Ox 96% on R/A; aa5 16:45 Pulse 79; Resp 14 S; Pulse Ox 97% on R/A; aa5 17:51 BP 171 / 89; Pulse 84; Resp 16 S; Pulse Ox 99% on 2 lpm NC; aa5 18:30 BP 158 / 92; Pulse 81; Resp 14 S; Pulse Ox 98% on 2 lpm NC; aa5 19:00 BP 168 / 111; Pulse 93; Resp 16 S; Pulse Ox 99% on 2 lpm NC; aa5 14:43 Body Mass Index 27.08 (65.00 kg, 154.94 cm) hb 16:45 Pt moving intermittently uncooperative, unable to obtain accurate BP at this time. aa5 MDM: 12:33 Medical Screening Exam initiated rn 13:58 ED course: Patient with elevated lactic acid, likely secondary to seizure and not rn infectious etiology. 0.5 L NS bolus will be given, no more than this as patient is not hypotensive and has liver cancer with ascites already. Empiric antibiotics written for.. 13:58 ED course: Sepsis reevaluation complete. rn 14:31 Differential diagnosis: cerebral vascular accident, seizure, Infection, UTI, spread of rn cancer, electrolyte disorder. Data reviewed: vital signs, nurses notes, lab test result(s), EKG, radiologic studies, and as a result, I will admit patient. Consideration of Admission/Observation Patient was admitted/placed on observation. Escalation of care including admission/observation considered. Counseling: I had a detailed discussion with the patient and/or guardian regarding the historical points, exam findings, and any diagnostic results supporting the discharge/admit diagnosis, lab results, radiology results, the need to transfer to another facility. Response to treatment: the patient's symptoms have mildly improved after treatment, and as a result, I will admit patient. ED course: No acute findings and workup. CT head negative. CT PE negative for acute findings. Patient now with 2 seizures, loaded with Keppra and Ativan no further seizures. Patient still altered and postictal. Family reports patient has physicians at [facility], request transfer there. No ICU beds here or EEG for his seizures so agree with transfer.. 17:33 ED course: I personally spent 35 minutes engaged in work directly related to the rn individual patient's care. This does not include any time spent performing procedures. The patient has been deemed critically ill because of multiple seizures and new onset seizure, review of old documentation and results, multiple visits with family and organization of transfer.. 17:51 ED course: Improved lactic acid. Sepsis reevaluation complete. rn 09/17 12:34 Order name: CBC with Diff; Complete Time: 13:56 rn 09/17 12:34 Order name: Magnesium; Complete Time: 13:56 rn 09/17 12:34 Order name: Protime (+inr); Complete Time: 13:14 rn 09/17 12:34 Order name: Ptt, Activated; Complete Time: 13:14 rn 07 12:34 Order name: Troponin High Sensitivity; Complete Time: 13:56 rn 09/17 12:34 Order name: Urinalysis w/ reflexes; Complete Time: 15:03 rn 09/17 12:34 Order name: Blood Culture Adult (2) rn 09/17 12:34 Order name: CMP; Complete Time: 13:56 rn 07 12:34 Order name: Lactate w/ 2H reflex if indic.; Complete Time: 13:56 rn 07 13:39 Order name: Ghost Lactate-NO COLLECT Timer; Complete Time: 15:50 EDMS 09/17 13:41 Order name: CBC Smear Scan; Complete Time: 13:56 EDMS 07 16:23 Order name: AMMONIA; Complete Time: 18:40 rn 09/17 17:00 Order name: Lactate Sepsis 2 HR Follow-up; Complete Time: 18:40 EDMS 09/17 12:34 Order name: CT Head Brain wo Cont; Complete Time: 13:56 rn 09/17 12:34 Order name: Chest Single View XRAY; Complete Time: 13:56 rn 09/17 12:34 Order name: CT Chest For PE Angio; Complete Time: 13:56 rn 09/17 12:34 Order name: Cardiac monitoring; Complete Time: 12:59 rn 09/17 12:34 Order name: EKG - Nurse/Tech; Complete Time: 12:59 rn 09/17 12:34 Order name: IV Saline Lock; Complete Time: 12:59 rn 09/17 12:34 Order name: Labs collected and sent; Complete Time: 12:59 rn 09/17 12:34 Order name: NPO; Complete Time: 12:59 rn 09/17 12:34 Order name: O2 Per Protocol; Complete Time: 12:59 rn 09/17 12:34 Order name: O2 Sat Monitoring; Complete Time: 12:59 rn 09/17 12:34 Order name: Accucheck; Complete Time: 12:59 rn 09/17 12:34 Order name: IV Saline Lock - Large Bore; Complete Time: 12:59 rn 09/17 12:34 Order name: Vital Signs; Complete Time: 12:59 rn 09/17 14:01 Order name: [place]; Complete Time: 14:01 aa5 EC:34 Rate is 93 beats/min. Rhythm is regular. QRS [place] is Normal. [place] interval is normal. QRS rn interval is normal. QT interval is normal. No Q waves. T waves are Normal. No ST changes noted. Clinical impression: NSR w/ Non-specific ST/T Changes. Interpreted by me. Reviewed by me. Administered Medications: 13:14 Drug: Ativan IVP 2 mg IVP once Route: IVP; Site: left antecubital; aa5 13:20 Follow up: Response: No adverse reaction aa5 13:19 Drug: Keppra IV 1000 mg IV at calculated rate once Route: IV; Rate: calculated rate; aa5 Site: left antecubital; 13:35 Follow up: Response: No adverse reaction; IV Status: Completed infusion aa5 14:35 Drug: NS 0.9% IV 500 ml 500 ml IV at 1 bolus once; to be given as a bolus over 30 aa5 minutes Volume: 500 ml; Route: IV; Rate: 1 bolus; Site: left antecubital; 15:05 Follow up: IV Status: Completed infusion; IV Intake: 500ml aa5 14:35 Drug: Rocephin IV 1 grams IV at calculated rate once; Given slow IV push per pharmacy aa5 instructions Route: IV; Rate: calculated rate; Site: left antecubital; 14:40 Follow up: IV Status: Completed infusion aa5 17:35 Drug: morphine IVP or IV 2 mg IVP once over 4 mins Route: IVP; Infused Over: 4 mins; aa5 Site: left antecubital; 17:40 Follow up: Response: No adverse reaction aa5 17:51 Drug: Ativan IVP 2 mg IVP once Route: IVP; Site: left antecubital; aa5 18:00 Follow up: Response: No adverse reaction; Patient is sedated aa5 19:12 Drug: hydrALAZINE IVP 5 mg IVP once Route: IVP; Site: right antecubital; rs5 19:12 Follow up: Response: Medication Administered at Departure aa5 Disposition Summary: 09/17/24 14:35 Transfer Ordered Notes: Transfer Location: [facility] rn Reason: Higher level of care rn Condition: Stable(09/17/24 14:35) rn Problem: new(09/17/24 14:35) rn Symptoms: have improved(09/17/24 14:35) rn Accepting Physician: (09/17/24 19:22) aa5 Diagnosis - Epileptic seizures related to external causes, not intractable, with status rn epilepticus(09/17/24 14:35) - Altered mental status, unspecified(09/17/24 14:35) rn Forms: - Medication Reconciliation Form rn - SBAR form lime burner time excluding procedures: 17:33 Critical care time: Bedside Care: 25 minutes, Consultation: 5 minutes, Family rn Intervention: 5 minutes. Total time: 35 minutes Signatures: Dispatcher [employer] EDMS Rommel Grajeda MD MD rn Calderon, Audri, RN RN aa5 Antonio Merino, RN RN rs5 Corrections: (The following items were deleted from the chart) 12:35 12:35 Chest Single View+RAD.RAD.BRZ ordered. EDMS EDMS 12:35 12:35 Chest For PE Angio+CT.RAD.BRZ ordered. EDMS EDMS 14:34 14:34 Home rn rn 14:34 14:34 new rn rn 14:34 14:34 have improved rn rn 14:34 14:34 Stable rn rn 14:34 14:34 Epileptic seizures related to external causes, not intractable, with status rn epilepticus rn 14:34 14:34 Altered mental status, unspecified rn rn 16:23 16:23 AMMONIA+C.LAB.BRZ ordered. EDMS EDMS 18:56 14:35 Dr. truong aa5 19:22 18:56 Dr. rosales aa5
[2024-09-17] MEDS ORDERED: MORPHINE 2 MG/ML SYR ONE (17:30)
[2024-09-17] MEDS ORDERED: HYDRALAZINE HCL 20 MG/ML VIAL ONE (19:13)
[2024-09-17 21:21] VITALS: TEMP 98.4
[2024-09-17 21:28] VITALS: O2SAT 97
[2024-09-17 21:29] VITALS: BP 165/105
== END 2024-09-17 19:22 | disposition short-term general hospital (02) ==
LOC: ER 12:12
DX: G40.501 Epileptic seizures related to external causes, not intractable, with status epilepticus (principal); C22.0 Liver cell carcinoma
CPT/HCPCS: 87040 ×2; 85025; 81001; 36415; 82140; 83735; 85610; 83605 ×2; 85730; 84484; 80053; 70450; 71275; 71045; 51702; 99285; Q9967; J1953; J0360; J2270; J7040; J0696

== ENCOUNTER 2025-05-17 18:10 | Emergency (ER) | payer OTHER, MEDICARE ==
--- OUTSIDE RECORDS SUMMARY | 2025-05-17 18:12 | XMS REPORT | Clinical Summary ---
Author Name Unknown Organization [facility] Address [address] [place] [address] Care Team Providers Care Sprinkling Truck Driver Name Role Phone Althea Raymond RN Unavailable Encounters Date Type Department Care Team Description 06/01/2024 Documentation [facility] [address] [facility] Main Bldg, 7th [place] [address] Althea Raymond, RN 06/01/2024 Telephone [facility] PATIENT ACCESS Lenora Luis RN 05/31/2024 Telephone [facility] PATIENT ACCESS Lenora Luis, RN after 05/17/2024 Social History Tobacco Use Types Packs/Day Years Used Date Smoking Tobacco: Never Assessed Comments Unknown Sex and Gender Information Value Date Recorded Sex Assigned at Not on file Legal Sex Female 5:38 PM CDT Gender Identity Not on file Sexual Orientation Not on file Plan of Treatment Health Maintenance Due Date Last Done Comments Pneumococcal Vaccine: 50+ Ye ars (1 of 1 - PCV) 2009 COVID-19 Vaccine ( season) 2024, 12/14/2020 Influenza Vaccine (#1) 2025 01/09/2022, 2019 Insurance [facility] [place] [address] [place] [address] PPO POS Advance Directives * Full Code (Latest Code Status on File) Date Activated Date Inactivated Comments 04/05/2025 4:35 PM Update based o n Advanced Directive Documentation Care Teams Sprinkling Truck Driver Relationship Specialty Start Date End Date Althea Raymond, RN [address] [place] [address] [email or web address] Intake Nurse Navigator Nursing 05/31/24 05/31/24
[2025-05-17] MEDS ORDERED: ONDANSETRON 4 MG/2 ML VIAL ONE (18:49)
[2025-05-17] MEDS ORDERED: NA CHLORIDE 0.9% 1,000 ML ONE (18:49)
[2025-05-17 19:03] LABS: Absolute Lymphocytes (CBC) 1.3 K/uL (0.7-4.9); Hematocrit 36.9 % (36.0-45.0); Hemoglobin 12.6 g/dL (12.0-15.0); MCH 31.5 pg (27.0-35.0); MCHC 34.0 g/dL (32.0-36.0); MCV 92.4 fL (80-100); MPV 7.9 fL (7.6-11.3); Nucleated RBC Absolute Count 0.0 (0-0); Nucleated Red Blood Cells % 0.1 % (0-0); RBC Red Blood Cell Count 4.00 M/uL (3.86-4.86); White Blood Count 5.30 thou/uL (4.3-10.9)
--- NOTE | 2025-05-17 19:12 | RAD REPORT ---
EXAM: Chest Single View HISTORY: 64 years Female Congestion;Cough COMPARISON: 09/17/2024 FINDINGS: LUNGS/PLEURA: Nonspecific prominence of the pulmonary interstitium. No consolidation. CARDIAC/MEDIASTINUM: Stable enlargement. UPPER ABDOMEN: No significant abnormality. BONES: No acute abnormality. LINES/TUBES/OTHER: N/A IMPRESSION: Nonspecific prominence of the pulmonary interstitium could reflect either mild edema and/or atypical infection.
[2025-05-17] MEDS ORDERED: MORPHINE 2 MG/ML SYR ONE (19:19)
[2025-05-17 19:20] LABS: Influenza A Ag Negative; Influenza B Ag Negative; SARS-CoV-2 Antigen Rapid Res Negative (Negative)
[2025-05-17] MEDS ORDERED: KETOROLAC 30 MG/ML INJ ONE (19:20)
[2025-05-17] MEDS ORDERED: DIPHENHYDRAMINE 50 MG/ML VIAL ONE (19:20)
[2025-05-17 19:22] LABS: Anion Gap 8.8 mEq/L (5.0-15.0); BUN Blood Urea Nitrogen 14.0 mg/dL (7-18); Glucose Level 91.0 mg/dL (74-106); Potassium 3.8 mEq/L (3.5-5.1); Troponin High Sensitivity 4.1 pg/mL (<58.9)
[2025-05-17 19:37] LABS: Sqamous Epithelial <5 /HPF (None Seen); Urine Crystals Unidentified Few /HPF (None Seen); Urine Culture Reflex Order REFLEXED; Urine Microscopic Reflex YN ORDER UMIC
[2025-05-17] MEDS ORDERED: NA CHLORIDE 0.9% 50 ML ONE (19:48)
[2025-05-17] MEDS ORDERED: CEFTRIAXONE 1000 MG/VIAL ONE (19:48)
--- NOTE | 2025-05-17 20:02 | EDPHYS ---
Physician Documentation [facility] Name: Luz Stacy Age: 64 yrs Sex: Female : 1960 Arrival Date: 05/17/2025 Time: 18:10 Bed 18 Private MD: ED Physician Leann Cantrell HPI: 05/17 18:30 This 64 yrs old Female presents to ER via Ambulatory with complaints of dr5 cough,fatigue. 18:30 Onset: The symptoms/episode began/occurred 1 day(s) ago. Context: occurred at home. dr5 Patient is a 64-year-old female with a history of back pain, digestive issues, liver cancer, cirrhosis, diverticulitis coming in with fatigue, cough, congestion it has been going for the past day. Patient denies fever, chest pain, abdominal pain, vomiting, or constipation. Patient reports that her diet has changed and she is now eating less healthier foods and feels like that also might be causing her to feel more fatigue.. Historical: - Allergies: 18:26 No Known Allergies; me1 - PMHx: 18:26 Back pain; digestive issues; Diverticulitis; Hormonal issues; liver cancer; with me1 metastasis (Unknown); Cirrhosis of liver; - PSHx: 18:26 section; Repair of inguinal hernia; total knee sx; Cholecystectomy; me1 - Immunization history:: Adult Immunizations up to date. - Infectious Disease History:: Denies. - Social history:: Smoking status: Patient/guardian denies using tobacco, but has a distant history of tobacco abuse. ROS: 18:30 Constitutional: as per hpi dr5 Exam: 18:30 Constitutional: This is a well developed, well nourished patient who is awake, alert, dr5 and in no acute distress. Head/Face: Normocephalic, atraumatic. Eyes: Pupils equal round and reactive to light, extra-ocular motions intact. Lids and lashes normal. Conjunctiva and sclera are non-icteric and not injected. Cornea within normal limits. Periorbital areas with no swelling, redness, or edema. Neck: Trachea midline, no thyromegaly or masses palpated, and no cervical lymphadenopathy. Supple, full range of motion without nuchal rigidity, or vertebral point tenderness. No Meningismus. Chest/axilla: Normal chest wall appearance and motion. Nontender with no deformity. No lesions are appreciated. Cardiovascular: Regular rate and rhythm with a normal S1 and S2. Normal PMI, no JVD. No pulse deficits. Respiratory: Lungs have equal breath sounds bilaterally, clear to auscultation. No rales, rhonchi or wheezes noted. No increased work of breathing, no retractions or nasal flaring. Back: No spinal tenderness. No costovertebral tenderness. Full range of motion. Skin: Warm, dry with normal turgor. Normal color with no rashes, no lesions, and no evidence of cellulitis. MS/ Extremity: Pulses equal, no cyanosis. Neurovascular intact. Full, normal range of motion. Neuro: Awake and alert, GCS 15, oriented to person, place, time, and situation. Cranial nerves II-XII grossly intact. Motor strength 5/5 in all extremities. Sensory grossly intact. Cerebellar exam normal. Normal gait. Vital Signs: 18:25 BP 150 / 82; Pulse 75; Resp 17; Temp 98.4; Pulse Ox 98% ; Weight 63.96 kg; Height 5 ft. me1 1 in. ; 19:00 BP 154 / 77; Pulse 65; Resp 18; Pulse Ox 100% ; rg5 20:05 BP 149 / 77; Pulse 66; Resp 17; Pulse Ox 100% on R/A; rg5 18:25 Body Mass Index 26.64 (63.96 kg, 154.94 cm) me1 MDM: 18:18 Medical Screening Exam initiated dr5 20:04 Differential diagnosis: generalized weakness, Urinary tract infection, pneumonia, dr5 electrolyte abnormality, dehydration. Data reviewed: vital signs, nurses notes, lab test result(s), CBC, white blood cell count, hemoglobin, hematocrit, platelets, electrolytes, sodium, potassium, chloride, serum bicarbonate, BUN, creatinine, serum glucose, urinalysis, bacteruria, radiologic studies, plain films. Consideration of Admission/Observation Escalation of care including admission/observation considered. Escalation considered patient found to have abnormality.. I considered the following discharge prescriptions or medication management in the emergency department I discussed and recommended Over The Counter medications, Medications were administered in the Emergency Department. See MAR. Historians other than the Patient: Daughter/Son: Daughter. Care significantly affected by the following chronic conditions: Diverticulitis, liver cancer, cirrhosis. Care significantly affected by the following Social Determinants of Health: Poor access to healthcare and/or lack of insurance, Poor access to transportation, Problems related to employment. Counseling: I had a detailed discussion with the patient and/or guardian regarding the historical points, exam findings, and any diagnostic results supporting the discharge/admit diagnosis, the presence of at least one elevated blood pressure reading (>120/80) during this emergency department visit, lab results, radiology results, the need for outpatient follow up, for definitive care, a family practitioner, to return to the emergency department if symptoms worsen or persist or if there are any questions or concerns that arise at home. Medication response: Morphine, Rocephin. Response to treatment: the patient's symptoms have resolved after treatment, the patient's condition has returned to base line. Special discussion: I have referred the patient to see his PCP for further evaluation of high blood pressure. I discussed with the patient/guardian in detail that at this point there is no indication for admission to the hospital. It is understood, however, that if the symptoms persist or worsen the patient needs to return immediately for re-evaluation. Based on the history and exam findings, there is no indication for further emergent testing or inpatient evaluation. I discussed with the patient/guardian the need to see the primary care provider for further evaluation of the symptoms. ED course: Rocephin IV given in the ER for urinary tract affection. Recommended patient call her immunosuppression therapy appointment tomorrow to see if she can still come. Will give patient antibiotics. Patient reports she send much better. All questions answered. Strict ER precautions given.. 05/17 18:29 Order name: Basic Metabolic Panel; Complete Time: 19:44 [facility] 05/17 18:29 Order name: CBC with Diff; Complete Time: 19:13 [facility] 05/17 18:29 Order name: Troponin HS; Complete Time: 19:44 [facility] 05/17 18:29 Order name: COVID-19 Ag + Flu A+B Ag; Complete Time: 19:44 [facility] 05/17 18:29 Order name: UA Rfx Julian Cult if indicated; Complete Time: 19:44 [facility] 05/17 19:57 Order name: Urine Culture [facility] 05/17 18:29 Order name: XRAY Chest (1 view); Complete Time: 19:13 [facility] 05/17 18:29 Order name: EKG; Complete Time: 18:30 [facility] 05/17 18:29 Order name: Cardiac monitoring; Complete Time: 19: dr5 05/17 18:29 Order name: EKG - Nurse/Tech; Complete Time: 19:16 dr5 05/17 18:29 Order name: IV Saline Lock; Complete Time: 19: dr5 05/17 18:29 Order name: Labs collected and sent; Complete Time: 19: dr5 05/17 18:29 Order name: O2 Per Protocol; Complete Time: : dr5 05/17 18:29 Order name: O2 Sat Monitoring; Complete Time: : dr5 EC:12 Rate is 60 beats/min. Rhythm is regular. QRS [place] is Normal. [place] interval is normal at dr5 178 msec. QRS interval is normal at 78 msec. QT interval is normal at 406 msec. Administered Medications: 19:04 Drug: NS 0.9% IV 1000 ml IV at 1000 ml once; to be given as a bolus over 60 minutes rg5 Route: IV; Rate: 1000 ml; Site: right antecubital; 20:07 Follow up: IV Status: Completed infusion; IV Intake: 1000ml rg5 19:04 Drug: Ondansetron IVP 4 mg IVP once; over 2 minutes Route: IVP; Site: right antecubital;rg5 19:16 Follow up: Response: No adverse reaction rg5 19:25 Drug: Ketorolac IVP 15 mg IVP once Route: IVP; Site: right antecubital; rg5 20:07 Follow up: Response: No adverse reaction; Pain is decreased rg5 19:25 Drug: morphine IVP or IV 2 mg IVP once over 4 mins Route: IVP; Infused Over: 4 mins; rg5 Site: right antecubital; 20:07 Follow up: Response: No adverse reaction rg5 20:07 Follow up: Response: No adverse reaction; Pain is decreased rg5 19:26 Drug: diphenhydrAMINE IVP 12.5 mg IVP once Route: IVP; Site: right antecubital; rg5 20:07 Follow up: Response: No adverse reaction; Pain is decreased rg5 19:50 Drug: Rocephin IV 1 grams IV at per protocol once; Given slow IV push per pharmacy rg5 instructions Route: IV; Rate: per protocol; Site: right antecubital; 20:07 Follow up: IV Status: Completed infusion; IV Intake: 50ml rg5 Disposition Summary: 05/17/25 20:02 Discharge Ordered Notes: Location: Home dr5 Condition: Stable dr5 Diagnosis - UTI/ Urinary tract infection, site not specified dr5 Followup: dr5 - With: Emergency Department - When: As needed - Reason: Worsening of condition Followup: dr5 - With: Private Physician - When: 1 - 2 days - Reason: Recheck today's complaints, Continuance of care, Re-evaluation by your physician Discharge Instructions: - Discharge Summary Sheet dr5 - Urinary Tract Infection, Adult, [id number] dr5 Forms: - Medication Reconciliation Form dr5 - Antibiotic Education dr5 - Patient Portal Instructions dr5 - Leadership Thank You Letter dr5 Prescriptions: - Cephalexin 500 mg Oral Capsule - take 1 capsule ORAL route every 12 hours for 10 days; 20 capsule; Refills: 0, dr5 Product Selection Permitted - Zofran 4 mg Oral Tablet - take 1 tablet ORAL route every 12 hours As needed; 20 tablet; Refills: 0, dr5 Product Selection Permitted Signatures: Dispatcher [employer] EDShira Torres RN RN me1 Esau Ellis RN RN rg5 [place], HEAT AND FROST INSULATOR HELPER-C HEAT AND FROST INSULATOR HELPER-Cdr5
--- NOTE | 2025-05-17 20:02 | ER ---
Nurse's Notes [facility] Name: Luz Stacy Age: 64 yrs Sex: Female : 1960 Arrival Date: 05/17/2025 Time: 18:10 Bed 18 Private MD: Diagnosis: UTI/ Urinary tract infection, site not specified Presentation: 05/17 18:25 Chief complaint: Patient states: fatigue, TRIANA, dizziness, diarrhea that started me1 yesterday. Coronavirus screen: Vaccine status: Patient reports receiving the 2nd dose of the covid vaccine. Ebola Screen: No symptoms or risks identified at this time. Initial Sepsis Screen: Does the patient meet any 2 criteria? No. Patient's initial sepsis screen is negative. Does the patient have a suspected source of infection? No. Patient's initial sepsis screen is negative. Risk Assessment: Do you want to hurt yourself or someone else? Patient reports no desire to harm self or others. Onset of symptoms was May 16, 2025. 18:25 Method Of Arrival: Ambulatory me1 18:25 Acuity: LON 3 me1 Historical: - Allergies: 18:26 No Known Allergies; me1 - PMHx: 18:26 Back pain; digestive issues; Diverticulitis; Hormonal issues; liver cancer; with me1 metastasis (Unknown); Cirrhosis of liver; - PSHx: 18:26 section; Repair of inguinal hernia; total knee sx; Cholecystectomy; me1 - Immunization history:: Adult Immunizations up to date. - Infectious Disease History:: Denies. - Social history:: Smoking status: Patient/guardian denies using tobacco, but has a distant history of tobacco abuse. Screenin:20 [facility] ED Fall Risk Assessment (Adult) History of falling in the last 3 months, rg5 including since admission No falls in past 3 months (0 pts) Confusion or Disorientation No (0 pts) Intoxicated or Sedated No (0 pts) Impaired Gait No (0 pts) Mobility Assist Device Used No (0 pt) Altered Elimination No (0 pt) Score/Fall Risk Level 0 - 2 = Low Risk Oriented to surroundings, Maintained a safe environment. Abuse screen: Denies threats or abuse. Denies injuries from another. Nutritional screening: No deficits noted. On. Tuberculosis screening: No symptoms or risk factors identified. Assessment: 18:20 General: Appears Behavior is calm, cooperative, appropriate for age, Reports feeling rg5 ill for 12-24 hours, fatigue for. Pain: Complains of pain in head. Pain:. Neuro: Level of Consciousness is awake, alert, obeys commands, Oriented to person, place, time. Cardiovascular: Patient's skin is warm and dry. Respiratory: Airway is patent Trachea midline Respiratory pattern is regular. GI: Abdomen is round non-distended. : No signs and/or symptoms were reported regarding the genitourinary system. EENT: No signs and/or symptoms were reported regarding the EENT system. Derm: Skin is intact, Skin is dry, Skin is normal. Musculoskeletal: Circulation, motion, and sensation intact. Range of motion: intact in all extremities. 19:10 Reassessment: Patient and/or family updated on plan of care and expected duration. Pain rg5 level reassessed. Patient is alert, oriented x 3, equal unlabored respirations, skin warm/dry/pink. 20:05 Reassessment: Patient and/or family updated on plan of care and expected duration. Pain rg5 level reassessed. Patient is alert, oriented x 3, equal unlabored respirations, skin warm/dry/pink. Patient states feeling better. Patient states symptoms have improved. Vital Signs: 18:25 BP 150 / 82; Pulse 75; Resp 17; Temp 98.4; Pulse Ox 98% ; Weight 63.96 kg; Height 5 ft. me1 1 in. ; 19:00 BP 154 / 77; Pulse 65; Resp 18; Pulse Ox 100% ; rg5 20:05 BP 149 / 77; Pulse 66; Resp 17; Pulse Ox 100% on R/A; rg5 18:25 Body Mass Index 26.64 (63.96 kg, 154.94 cm) me1 ED Course: 18:15 Patient arrived in ED. al6 18:18 [facility] 18:18 Leann Cantrell MD is Attending Physician. dr5 18:20 Bed in low position. Call light in reach. Side rails up X 1. Door closed. Noise rg5 minimized. Warm blanket given. 18:20 No provider procedures requiring assistance completed. Inserted saline lock: 20 gauge rg5 in right antecubital area, using aseptic technique. Blood collected. Flushed with 10 mL NS. Patient maintains SpO2 saturation greater than 95% on room air. 18:24 Esau Ellis, RN is Primary Nurse. rg5 18:26 Triage completed. me1 18:26 Arm band placed on Patient placed in an exam room. me1 19:02 XRAY Chest (1 view) In Process Unspecified. EDMS 19:18 EKG done, by ED staff, reviewed by Anderson AGUILAR. oe 20:12 IV discontinued, bleeding controlled, No redness/swelling at site. Pressure dressing rg5 applied. 20:13 Provided Education on: post er care. rg5 Administered Medications: 19:04 Drug: NS 0.9% IV 1000 ml IV at 1000 ml once; to be given as a bolus over 60 minutes rg5 Route: IV; Rate: 1000 ml; Site: right antecubital; 20:07 Follow up: IV Status: Completed infusion; IV Intake: 1000ml rg5 19:04 Drug: Ondansetron IVP 4 mg IVP once; over 2 minutes Route: IVP; Site: right antecubital;rg5 19:16 Follow up: Response: No adverse reaction rg5 19:25 Drug: Ketorolac IVP 15 mg IVP once Route: IVP; Site: right antecubital; rg5 20:07 Follow up: Response: No adverse reaction; Pain is decreased rg5 19:25 Drug: morphine IVP or IV 2 mg IVP once over 4 mins Route: IVP; Infused Over: 4 mins; rg5 Site: right antecubital; 20:07 Follow up: Response: No adverse reaction rg5 20:07 Follow up: Response: No adverse reaction; Pain is decreased rg5 19:26 Drug: diphenhydrAMINE IVP 12.5 mg IVP once Route: IVP; Site: right antecubital; rg5 20:07 Follow up: Response: No adverse reaction; Pain is decreased rg5 19:50 Drug: Rocephin IV 1 grams IV at per protocol once; Given slow IV push per pharmacy rg5 instructions Route: IV; Rate: per protocol; Site: right antecubital; 20:07 Follow up: IV Status: Completed infusion; IV Intake: 50ml rg5 Medication: 18:20 VIS not applicable for this client. rg5 Intake: 20:07 IV: 50ml; Total: 50ml. rg5 20:07 IV: 1000ml; Total: 1050ml. rg5 Outcome: 20:02 Discharge ordered by . dr5 20:12 Discharged to home ambulatory, rg5 20:12 Condition: stable 20:12 Discharge instructions given to patient, Instructed on discharge instructions, follow up and referral plans. Demonstrated understanding of instructions, follow-up care, medications, Prescriptions given X 2, 20:13 Patient left the ED. rg5 Signatures: Dispatcher [employer] [facility] Keshawn Long Michelle, RN RN me1 Esau Ellis RN RN rg5 Anderson Wells, PRODUCT SAF[employer]Y TESTER-C PR[employer] SAF[employer]Y TESTER-[facility]5 Jen [id number]
[2025-05-17 20:32] VITALS: TEMP 98.4
[2025-05-17 20:34] VITALS: O2SAT 100
[2025-05-17 20:36] VITALS: BP 149/77
== END 2025-05-17 20:13 | disposition home or self-care (01) ==
LOC: ER 18:10
DX: N39.0 Urinary tract infection, site not specified (principal); R05.9 Cough, unspecified; Z85.05 Personal history of malignant neoplasm of liver; Z11.52 Encounter for screening for COVID-19
CPT/HCPCS: 96365; 96361; 93005; 87088; 85025; 81001; 87086; 80048; 36415; 84484; 71045; 96375; 99284; 87428; J1200; J2270; J2405; J7030; J0696